=== PATIENT | male | born 1935 | race African-American/Black ===

== ENCOUNTER 2016-09-03 08:38 | Day surgery (SDC) | payer MEDICARE, OTHER ==
[~2016-09-03 08:38] MED LIST: KETOROLAC TROMETHAMINE 0.45% 4 DROP/0.4 ML DROPERETTE OS PRN
[2016-09-03] MEDS ORDERED: CHONDR SU A NA/HYALUR INTRAOC KIT (SURGICARE) ONE (08:47)
[2016-09-03] MEDS ORDERED: TOBRAMYCIN SULFATE/DEXAMETH OPH OINTMENT 3.5 GM ONE (08:47)
[2016-09-03] MEDS ORDERED: EPINEPHRINE INJ/PF 1 MG/1 ML AMPULE ONE (08:47)
[2016-09-03] MEDS ORDERED: LIDOCAINE 1% INJ-PF (10 MG/ML) 30 ML SDV ONE (08:47)
[2016-09-03] MEDS: TROPICAMIDE 1% OPH SOLN 3 ML OS PRN ×3 (09:09→09:36)
[2016-09-03] MEDS: CYCLOPENTOLATE 0.2%/PHENYLEPHRINE 1% OPH SOLN 2 ML OS PRN ×3 (09:09→09:36)
[2016-09-03] MEDS: BESIFLOXACIN HCL 0.6% OPH SUSP 5 ML BOTTLE OS PRN ×3 (09:10→10:05)
[2016-09-03] MEDS: TETRACAINE HCL 0.5% OPH SOLN 0.6 ML DROPERETTE OS PRN ×3 (09:11→09:45)
[2016-09-03] MEDS ORDERED: MIDAZOLAM 2 MG/2 ML INJ ONE (09:19)
[2016-09-03] MEDS ORDERED: FENTANYL CITRATE INJ/PF 100 MCG/2 ML AMPUL ONE (09:19)
== END 2016-09-03 10:54 | disposition home or self-care (01) ==
LOC: SC 08:38
PROVIDERS: ATTEND Ophthalmology
PROC: 08RK3JZ Replacement of Left Lens with Synthetic Substitute, Percutaneous Approach (ICD-10-PCS; principal; 2016-09-03 09:15)
DX: H25.12 Age-related nuclear cataract, left eye (principal); M19.90 Unspecified osteoarthritis, unspecified site; E11.9 Type 2 diabetes mellitus without complications; I10 Essential (primary) hypertension; E78.00 Pure hypercholesterolemia, unspecified; J44.9 Chronic obstructive pulmonary disease, unspecified; G47.30 Sleep apnea, unspecified; E66.9 Obesity, unspecified; Z96.642 Presence of left artificial hip joint; Z96.652 Presence of left artificial knee joint; Z79.84 Long term (current) use of oral hypoglycemic drugs; Z79.4 Long term (current) use of insulin; Z68.35 Body mass index [BMI] 35.0-35.9, adult; Z79.1 Long term (current) use of non-steroidal anti-inflammatories (NSAID)
CPT/HCPCS: 82962; 66984; V2630; J2250; J3490 ×3; A9270; J0171; J3010; 142

== ENCOUNTER 2016-11-29 16:45 | Emergency (ER) | payer MEDICARE, OTHER ==
[2016-11-29 16:54] VITALS: BP 103/63
--- NOTE | 2016-11-29 17:29 | ER Document Report ---
ED Extremity Problem, Upper - General Chief Complaint: Shoulder Pain Stated Complaint: LEFT SHOULDER PAIN Time Seen by Provider: 11/29/16 17:13 TRAVEL OUTSIDE OF THE [place] IN LAST 30 DAYS: No - HPI Patient complains to provider of: Pain, Left, Shoulder Onset: Other - 2 months, worse over this week Quality of pain: Achy Severity of pain: Moderate - positional Context: denies: Animal bite, Blow, Burn, Crushed, Fall, Human bite, Incised, Insect bite, Tick bite, Other Associated symptoms: denies: None, Back pain, Chest pain/discomfort, Chills, Dizziness, Fainted, Fever, Hurts to breathe, Jaw pain, Nausea, Neck pain, Numbness, Seizure, Short of breath, Sweating, Tingling, Vomiting, Other Exacerbated by: Movement Relieved by: Rest, Positioning Similar symptoms previously: Yes - h/o OA of this left shoulder Recently seen / treated by doctor: No - h/o DM - Related Data Allergies/Adverse Reactions: atenolol Allergy (Verified 11/29/16 16:51) Unknown reaction niacin [From Niaspan Extended-Release] Allergy (Verified 11/29/16 16:51) UNKNOW REACTION Past Medical History - Social History Smoking Status: Former Smoker Chew tobacco use (# tins/day): No Frequency of alcohol use: None Drug Abuse: None Family History: Reviewed & Not Pertinent - Past Medical History Cardiac Medical History: Reports: Hx Hypercholesterolemia, Hx Hypertension - MEDICATED Denies: Hx Heart Attack Pulmonary Medical History: Denies: Hx Asthma Neurological Medical History: Denies: Hx Cerebrovascular Accident, Hx Seizures Endocrine Medical History: Reports: Hx Diabetes Mellitus Type 2 Renal/ Medical History: Denies: Hx Peritoneal Dialysis Malignancy Medical History: Reports Hx Prostate Cancer - Getting radiation therapy in the burn at this time 06/16/2015 GI Medical History: Reports: Hx Gastroesophageal Reflux Disease. Denies: Hx Hepatitis, Hx Hiatal Hernia, Hx Ulcer Musculoskeltal Medical History: Reports Hx Arthritis, Reports Hx Musculoskeletal Deformity, Reports Hx Musculoskeletal Trauma Psychiatric Medical History: Reports: Hx Anxiety Traumatic Medical History: Reports: Hx Fractures Infectious Medical History: Denies: Hx Hepatitis Past Surgical History: Reports: Hx Orthopedic Surgery - left hip, left knee. Denies: Hx Open Heart Surgery, Hx Pacemaker - Immunizations Hx Diphtheria, Pertussis, Tetanus Vaccination: No Review of Systems - Review of Systems Constitutional: No symptoms reported Musculoskeletal: See HPI -: Yes All other systems reviewed and negative Physical Exam - Vital signs Vitals: Pulse Resp BP Pulse Ox 52 L 24 H 103/63 93 11/29/16 16:54 11/29/16 16:54 11/29/16 16:54 11/29/16 16:54 - General General appearance: Appears well, Alert In distress: None - Cardiovascular Pulses: Normal: Radial Normal capillary refill: Yes - Extremities General upper extremity: Normal inspection, Nontender, Normal color, Normal ROM , Normal strength, Normal temperature Shoulder: Normal, Nontender. No: Tender, Abrasion, Deformity, Dislocation, Ecchymosis, Instability, Laceration, Limited ROM, Other - Neurological Motor strength normal: LUE, RUE Additional motor exam normals: Equal paraeducator. No: Weakness Sensory: Normal - Skin Skin Temperature: Warm Skin Moisture: Dry Skin Color: Normal Skin Turgor: Elastic Course - Re-evaluation Re-evalutation: 11/29/16 1720 No evidence of a septic joint, gout flare, dislocation, or fracture on exam and imaging. Vitals wnl. At this time, I do not see an indication for labs or further imaging. Will discharge with conservative measures, return precautions, and follow-up recommendations. - Vital Signs Vital signs: Temp Pulse Resp BP Pulse Ox 52 L 24 H 103/63 93 11/29/16 16:54 11/29/16 16:54 11/29/16 16:54 11/29/16 16:54 - Diagnostic Test Radiology reviewed: Image reviewed, Reports reviewed Discharge - Discharge Clinical Impression: Osteoarthritis Qualifiers: Osteoarthritis location: shoulder Osteoarthritis type: primary Laterality: left Qualified Code(s): M19.012 - Primary osteoarthritis, left shoulder Condition: Good Disposition: HOME, SELF-CARE Instructions: Arthritis ([facility]) Additional Instructions: Please follow-up with your primary care provider this week for possible evaluation and need for pain management.
--- NOTE | 2016-11-29 18:37 | RADIOLOGY REPORT (SQ) ---
EXAM DESCRIPTION: SHOULDER LEFT 2 OR MORE VIEWS COMPLETED DATE/TIME: 11/29/2016 6:18 pm REASON FOR STUDY: pain COMPARISON: None. NUMBER OF VIEWS: Three views. TECHNIQUE: Internal rotation, external rotation, and Y view images acquired of the left shoulder. LIMITATIONS: None. FINDINGS: MINERALIZATION: Osteopenia. BONES: No acute fracture or dislocation. No worrisome bone lesions. JOINTS: No dislocation. Note is made of glenohumeral and acromioclavicular arthropathy. VISUALIZED LUNGS AND RIBS: No pneumothorax. No rib fracture. SOFT TISSUES: No radiopaque foreign body. OTHER: No other significant finding. IMPRESSION: NO RADIOGRAPHIC EVIDENCE OF ACUTE INJURY. TECHNICAL DOCUMENTATION: JOB ID: [id number] [employer]- All Rights Reserved
[2016-11-29] MEDS ORDERED: NAPROXEN 250 MG TABLET PO ONE (18:51)
== END 2016-11-29 19:00 | disposition home or self-care (01) ==
LOC: ER 16:45
DX: M19.012 Primary osteoarthritis, left shoulder (principal); E11.9 Type 2 diabetes mellitus without complications; I10 Essential (primary) hypertension; Z85.46 Personal history of malignant neoplasm of prostate; Z87.891 Personal history of nicotine dependence; Z88.8 Allergy status to other drugs, medicaments and biological substances
CPT/HCPCS: 99283; 73030; A9270

== ENCOUNTER 2017-01-28 12:12 | Emergency (ER) | payer MEDICARE, OTHER ==
--- NOTE | 2017-01-28 12:41 | ER Document Report ---
ED General - General Chief Complaint: Trouble Walking Stated Complaint: WEAKNESS Time Seen by Provider: 01/28/17 12:27 TRAVEL OUTSIDE OF THE [place] IN LAST 30 DAYS: No - HPI Onset: Just prior to arrival Onset/Duration: Gradual Quality of pain: Achy Associated symptoms: None Notes: 81 years old male with a history of right knee advanced arthritis to the point that he cannot bear weight, walks with the crutches, this morning when he was trying to sit down and lost his balance and fell down on his back and went backward and hit the head. Did not lose any consciousness. Currently has no headache no focal weakness numbness tingling sensation. He has a chronic history of right hand tremor, not diagnosed as parkinsonism. He is also have prostate cancer went through radiation treatment, going to have hormonal treatment soon. Denies any dysuria frequency or urgency. He has advanced diabetes with diabetic neuropathy. Denies any fever chills or other constitutional symptoms - Related Data Allergies/Adverse Reactions: atenolol Allergy (Verified 11/29/16 16:51) Unknown reaction niacin [From Niaspan Extended-Release] Allergy (Verified 11/29/16 16:51) UNKNOW REACTION Past Medical History - Social History Smoking Status: Never Smoker Cigarette use (# per day): No Chew tobacco use (# tins/day): No Frequency of alcohol use: None Drug Abuse: None Family History: Reviewed & Not Pertinent, CAD, COPD, CVA Patient has suicidal ideation: No Patient has homicidal ideation: No - Past Medical History Cardiac Medical History: Reports: Hx Congestive Heart Failure, Hx Coronary Artery Disease, Hx Hypercholesterolemia, Hx Hypertension - MEDICATED, Other - Advanced diabetes Denies: Hx Heart Attack Neurological Medical History: Reports: Other - Chronic tremors. Denies: Hx Cerebrovascular Accident, Hx Seizures Endocrine Medical History: Reports: Hx Diabetes Mellitus Type 2 Renal/ Medical History: Denies: Hx Peritoneal Dialysis Malignancy Medical History: Reports Hx Prostate Cancer - Getting radiation therapy in the burn at this time 06/16/2015 GI Medical History: Reports: Hx Gastroesophageal Reflux Disease. Denies: Hx Hepatitis, Hx Hiatal Hernia, Hx Ulcer Musculoskeltal Medical History: Reports Hx Arthritis, Reports Hx Musculoskeletal Deformity, Reports Hx Musculoskeletal Trauma Psychiatric Medical History: Reports: Hx Anxiety Traumatic Medical History: Reports: Hx Fractures Infectious Medical History: Denies: Hx Hepatitis Past Surgical History: Reports: Hx Orthopedic Surgery - left hip, left knee. Denies: Hx Open Heart Surgery, Hx Pacemaker - Immunizations Hx Diphtheria, Pertussis, Tetanus Vaccination: No Review of Systems - Review of Systems Constitutional: No symptoms reported EENT: No symptoms reported Cardiovascular: No symptoms reported Respiratory: No symptoms reported Gastrointestinal: No symptoms reported Genitourinary: No symptoms reported Hematologic/Lymphatic: No symptoms reported Neurological/Psychological: No symptoms reported Physical Exam - Vital signs Vitals: Temp Pulse Resp BP Pulse Ox 97.2 F 86 20 154/96 H 93 01/28/17 12:19 01/28/17 12:19 01/28/17 12:19 01/28/17 12:19 01/28/17 12:19 - Notes Notes: General exam: Alert oriented 3, appears well, not in any acute distress, body habitus--- morbidly obese, ---. HEENT: Normocephalic atraumatic pupils were equal reactive to light extraocular muscles were within normal range. Neck is supple no JVD no lymphadenopathy. Oral mucosa-not erythematous, no lesions noted no tonsillar enlargement. Chest no lesions, nontraumatic, nontender. No deformity Lungs: Bilaterally clear breath sounds no rales or wheezing, no adventitial sounds, no dullness on percussion. Cardiovascular system: Normal S1-S2 no murmurs, no gallop. Regular rhythm. No peripheral edema over the lower extremities. Gastrointestinal: Normal appearance, positive bowel sounds in all 4 quadrants, no Hepatosplenomegaly, no obvious masses, no obvious abdominal bruit. No horseshoe dullness. Inguinal region: No masses or obvious inguinal hernia noted Genitourinary: Rectal exam: Nervous system: Alert oriented 3, no cranial nerve weakness, no focal neurologicaldeficit noted. Sensation is intact over the lower extremities for pain and touch. Reflexes are 2+ over both patella. Right upper extremity shows trace pitting tremors Upper extremities: No trauma as noted, normal range of motion for both shoulders , elbows and wrist. Lower extremity: No traumas or deformities noted, normal range of motion for flexion extension abduction abduction of both hip joints, Normal flexion and extension of knee joint. Except right knee show severe osteoarthritic changes, flexion and extension was painful. Normal range of motion for plantarflexion dorsiflexion and eversion inversion for both ankles. Skin: No erythema, no edema, no obvious lesions noted Course - Re-evaluation Re-evalutation: 01/28/17 14:55 Patient was informed of the results, he is feeling comfortable ready to go home. - Vital Signs Vital signs: Temp Pulse Resp BP Pulse Ox 97.2 F 86 20 154/96 H 93 01/28/17 12:19 01/28/17 12:19 01/28/17 12:19 01/28/17 12:19 01/28/17 12:19 - Laboratory Result Diagrams: 01/28/17 13:22 01/28/17 13:22 Laboratory results interpreted by me: 01/28/17 13:22 Chloride 97 L Carbon Dioxide 33 H Glucose 140 H AST 16 L - Diagnostic Test Radiology results interpreted by me: 01/28/17 14:54 Diagnostic report text EXAM DESCRIPTION: CT HEAD WITHOUT COMPLETED DATE/TIME: 01/28/2017 1:12 pm REASON FOR STUDY: Nonambulatory COMPARISON: None. TECHNIQUE: Axial images acquired through the brain without intravenous contrast. Images reviewed with bone, brain and subdural windows. Images stored on PACS. All CT scanners at this facility use dose modulation, iterative reconstruction, and/or weight based dosing when appropriate to reduce radiation dose to as low as reasonably achievable (ALARA). [facility]: Dose Right [facility]: CareDose [facility]: Dose Right [facility]: Teradose 4D [facility]: [employer] RADIATION DOSE: mGy. LIMITATIONS: Study is limited somewhat due to motion artifact FINDINGS: VENTRICLES: Prominent. CEREBRUM: No masses. No hemorrhage. No midline shift. Areas of low density in the white matter most likely due to chronic micro-vascular ischemic change. No evidence for acute infarction. CEREBELLUM: No masses. No hemorrhage. No alteration of density. No evidence for acute infarction. EXTRAAXIAL SPACES: Age-related involutional change. No fluid collections. No masses. ORBITS AND GLOBE: No intra- or extraconal masses. Normal contour of globe without masses. CALVARIUM: No fracture. PARANASAL SINUSES: No fluid or mucosal thickening. SOFT TISSUES: No mass or hematoma. OTHER: No other significant finding. IMPRESSION: CHRONIC CHANGES OF ATROPHY AND MICROVASCULAR ISCHEMIA. NO ACUTE PROCESS. EVIDENCE OF ACUTE STROKE: NO. TECHNICAL DOCUMENTATION: JOB ID: [id number] Quality ID # [id number]: Final reports with documentation of one or more dose reduction techniques (e.g., Automated exposure control, adjustment of the mA and/or kV according to patient size, use of iterative reconstruction technique) 2010 [employer]- All Rights Reserved Dictated by: SITA MANCUSO MD [id number] Discharge - Discharge Clinical Impression: Fall (on) (from) other stairs and steps, initial encounter Osteoarthritis of right knee Qualifiers: Osteoarthritis type: primary Qualified Code(s): M17.11 - Unilateral primary osteoarthritis, right knee Condition: Fair Disposition: HOME, SELF-CARE Instructions: Arthritis ([facility])
[2017-01-28 12:48] VITALS: BP 154/96
--- NOTE | 2017-01-28 13:29 | RADIOLOGY REPORT (SQ) ---
EXAM DESCRIPTION: CT HEAD WITHOUT COMPLETED DATE/TIME: 01/28/2017 1:12 pm REASON FOR STUDY: Nonambulatory COMPARISON: None. TECHNIQUE: Axial images acquired through the brain without intravenous contrast. Images reviewed wi th bone, brain and subdural windows. Images stored on PACS. All CT scanners at this facility use dose modulation, iterative reconstruction, and/or weight based d osing when appropriate to reduce radiation dose to as low as reasonably achievable (ALARA). [facility]: Dose Right [facility]: CareDose [facility]: Dose Right [facility]: Teradose 4D [facility]: [employer] RADIATION DOSE: mGy. LIMITATIONS: Study is limited somewhat due to motion artifact FINDINGS: VENTRICLES: Prominent. CEREBRUM: No masses. No hemorrhage. No midline shift. Areas of low density in the white matter mos t likely due to chronic micro-vascular ischemic change. No evidence for acute infarction. CEREBELLUM: No masses. No hemorrhage. No alteration of density. No evidence for acute infarction. EXTRAAXIAL SPACES: Age-related involutional change. No fluid collections. No masses. ORBITS AND GLOBE: No intra- or extraconal masses. Normal contour of globe without masses. CALVARIUM: No fracture. PARANASAL SINUSES: No fluid or mucosal thickening. SOFT TISSUES: No mass or hematoma. OTHER: No other significant finding. IMPRESSION: CHRONIC CHANGES OF ATROPHY AND MICROVASCULAR ISCHEMIA. NO ACUTE PROCESS. EVIDENCE OF ACUTE STROKE: NO. TECHNICAL DOCUMENTATION: JOB ID: [id number] Quality ID # [id number]: Final reports with documentation of one or more dose reduction techniques (e.g., Au tomated exposure control, adjustment of the mA and/or kV according to patient size, use of iterative reconstruction technique) 2010 [employer]- All Rights Reserved
[2017-01-28 13:47] LABS: ABSOLUTE BASOPHILS # (AUTO) 0.1 10^3/uL (0.0-0.2); ABSOLUTE EOSINOPHILS # (AUTO) 0.2 10^3/uL (0.0-0.6); ABSOLUTE LYMPHOCYTES (AUTO) 1.5 10^3/uL (0.5-4.7); ABSOLUTE MONOCYTES (AUTO) 0.5 10^3/uL (0.1-1.4); ABSOLUTE NEUT (AUTO) 4.7 10^3/uL (1.7-8.2); BASOPHILS % (AUTO) 1.2 % (0-2); EOSINOPHILS % (AUTO) 2.9 % (0-6); HEMATOCRIT 45.7 % (37.9-51.0); HEMOGLOBIN 15.4 g/dL (13.5-17.0); HGB HCT DIFFERENCE 0.5; LYMPHOCYTES % (AUTO) 21.3 % (13-45); MEAN CORPUSCULAR HEMOGLOBIN 28.3 pg (27.0-33.4); MEAN CORPUSCULAR HGB CONC 33.7 g/dL (32.0-36.0); MEAN CORPUSCULAR VOLUME 84 fl (80-97); MONOCYTES % (AUTO) 6.6 % (3-13); RED BLOOD COUNT 5.45 10^6/uL (4.35-5.55); RED CELL DISTRIBUTION WIDTH 13.5 % (11.5-14.0); WHITE BLOOD COUNT 6.9 10^3/uL (4.0-10.5)
[2017-01-28 13:53] LABS: ALANINE AMINOTRANSFERASE 30 U/L (21-72); ALBUMIN 3.8 g/dL (3.5-5.0); ALKALINE PHOSPHATASE 88 U/L (38-126); ANION GAP 10 (5-19); ASPARTATE AMINO TRANSFERASE 16 U/L (17-59); BILIRUBIN,DIRECT 0.3 mg/dL (0.0-0.4); BILIRUBIN,TOTAL 0.8 mg/dL (0.2-1.3); BLOOD UREA NITROGEN 12 mg/dL (7-20); CALCIUM 9.5 mg/dL (8.4-10.2); CARBON DIOXIDE 33 mmol/L (22-30); CHLORIDE 97 mmol/L (98-107); CREATININE RESULT 0.81 mg/dL (0.52-1.25); GLUCOSE 140 mg/dL (75-110); SODIUM 139.8 mmol/L (137-145); TOTAL PROTEIN 6.6 g/dL (6.3-8.2)
== END 2017-01-28 17:23 | disposition home or self-care (01) ==
LOC: ER 12:12
DX: M17.11 Unilateral primary osteoarthritis, right knee (principal); R26.2 Difficulty in walking, not elsewhere classified; R53.1 Weakness; W10.9XXA Fall (on) (from) unspecified stairs and steps, initial encounter
CPT/HCPCS: 36415; 70450; 80053; 85025; 99285

== ENCOUNTER 2017-04-08 16:09 | Emergency (ER) | payer MEDICARE, OTHER ==
[2017-04-08 19:33] LABS: ABSOLUTE BASOPHILS # (AUTO) 0.1 10^3/uL (0.0-0.2); ABSOLUTE EOSINOPHILS # (AUTO) 0.2 10^3/uL (0.0-0.6); ABSOLUTE LYMPHOCYTES (AUTO) 1.4 10^3/uL (0.5-4.7); ABSOLUTE MONOCYTES (AUTO) 0.6 10^3/uL (0.1-1.4); ABSOLUTE NEUT (AUTO) 6.1 10^3/uL (1.7-8.2); BASOPHILS % (AUTO) 1.2 % (0-2); EOSINOPHILS % (AUTO) 2.3 % (0-6); HEMATOCRIT 47.6 % (37.9-51.0); HEMOGLOBIN 15.8 g/dL (13.5-17.0); LYMPHOCYTES % (AUTO) 16.6 % (13-45); MEAN CORPUSCULAR HEMOGLOBIN 28.2 pg (27.0-33.4); MEAN CORPUSCULAR HGB CONC 33.2 g/dL (32.0-36.0); MEAN CORPUSCULAR VOLUME 85 fl (80-97); MONOCYTES % (AUTO) 6.8 % (3-13); PLATELET COUNT 256 10^3/uL (150-450); RED BLOOD COUNT 5.61 10^6/uL (4.35-5.55); RED CELL DISTRIBUTION WIDTH 13.9 % (11.5-14.0); SEGMENTED NEUTROPHILS % (AUTO) 73.1 % (42-78); TOTAL CELLS COUNTED % (AUTO) 100 %; WHITE BLOOD COUNT 8.3 10^3/uL (4.0-10.5)
--- NOTE | 2017-04-08 19:37 | RADIOLOGY REPORT (SQ) ---
EXAM DESCRIPTION: CHEST SINGLE VIEW COMPLETED DATE/TIME: 04/08/2017 7:30 pm REASON FOR STUDY: hypoxia COMPARISON: None. EXAM PARAMETERS: NUMBER OF VIEWS: One view. TECHNIQUE: Single frontal radiographic view of the chest acquired. RADIATION DOSE: NA LIMITATIONS: None. FINDINGS: LUNGS AND PLEURA: No consolidation, masses or pneumothorax. No pleural effusion. MEDIASTINUM AND HILAR STRUCTURES: Age-appropriate. HEART AND VASCULAR STRUCTURES: Mild cardiac enlargement. BONES: No acute findings. HARDWARE: None in the chest. OTHER: No other significant finding. IMPRESSION: NO ACUTE RADIOGRAPHIC FINDING IN THE CHEST. TECHNICAL DOCUMENTATION: JOB ID: [id number] [place]-72 2010 [employer]- All Rights Reserved
[2017-04-08 19:52] LABS: ANION GAP 7 (5-19); BLOOD UREA NITROGEN 11 mg/dL (7-20); CALCIUM 10.1 mg/dL (8.4-10.2); CARBON DIOXIDE 36 mmol/L (22-30); CHLORIDE 98 mmol/L (98-107); GLUCOSE 136 mg/dL (75-110); POTASSIUM 4.1 mmol/L (3.6-5.0); SODIUM 141.3 mmol/L (137-145)
--- NOTE | 2017-04-08 20:06 | ER Document Report ---
ED General - General Chief Complaint: High Blood Pressure Stated Complaint: BLOOD PRESSURE PROBLEM Time Seen by Provider: 04/08/17 18:34 Notes: Patient is a 81 year old male who presents with concerns of hypertension. Patient states that he does not have any symptoms or concerns. He reports that he was being transported from his doctor's office back home via [employer] transport company. They noted that his blood pressure was elevated and encouraged him to come to the emergency department as opposed to going directly home. The patient notes that his blood pressure is not normally elevated, that he has been more stressed out lately due to a recent move within his home as well as multiple doctors appointments. He takes lisinopril 10 mg daily and has not had any recent medication and just. He denies any chest pain, shortness of breath, headache, neck pain, focal weakness, numbness or confusion. He believes that situational stressors have increased his blood pressure and does believe that his blood pressure medicine is working well. His at the bedside corroborates this report and states "everybody just freaks out about his blood pressure all the time and I do not know why". TRAVEL OUTSIDE OF THE [place] IN LAST 30 DAYS: No - Related Data Allergies/Adverse Reactions: atenolol Allergy (Verified 11/29/16 16:51) Unknown reaction niacin [From Niaspan Extended-Release] Allergy (Verified 11/29/16 16:51) UNKNOW REACTION Past Medical History - General Information source: Patient, Relative - Social History Smoking Status: Former Smoker Frequency of alcohol use: None Drug Abuse: None Family History: Reviewed & Not Pertinent, CAD, COPD, CVA Patient has suicidal ideation: No Patient has homicidal ideation: No - Past Medical History Cardiac Medical History: Reports: Hx Congestive Heart Failure, Hx Coronary Artery Disease, Hx Hypercholesterolemia, Hx Hypertension - MEDICATED Denies: Hx Heart Attack Neurological Medical History: Denies: Hx Cerebrovascular Accident, Hx Seizures Endocrine Medical History: Reports: Hx Diabetes Mellitus Type 2 Renal/ Medical History: Denies: Hx Peritoneal Dialysis Malignancy Medical History: Reports Hx Prostate Cancer - Getting radiation therapy in the burn at this time 06/16/2015 GI Medical History: Reports: Hx Gastroesophageal Reflux Disease. Denies: Hx Hepatitis, Hx Hiatal Hernia, Hx Ulcer Musculoskeltal Medical History: Reports Hx Arthritis, Reports Hx Musculoskeletal Deformity, Reports Hx Musculoskeletal Trauma Psychiatric Medical History: Reports: Hx Anxiety Traumatic Medical History: Reports: Hx Fractures Infectious Medical History: Denies: Hx Hepatitis Past Surgical History: Reports: Hx Orthopedic Surgery - left hip, left knee. Denies: Hx Open Heart Surgery, Hx Pacemaker - Immunizations Hx Diphtheria, Pertussis, Tetanus Vaccination: No Review of Systems - Review of Systems Notes: Constitutional: Negative for fever. HENT: Negative for sore throat. Eyes: Negative for visual changes. Cardiovascular: Negative for chest pain. Respiratory: Negative for shortness of breath. Gastrointestinal: Negative for abdominal pain, vomiting or diarrhea. Genitourinary: Negative for dysuria. Musculoskeletal: Negative for back pain. Skin: Negative for rash. Neurological: Negative for headaches, weakness or numbness. 10 point ROS negative except as marked above and in HPI. Physical Exam - Vital signs Vitals: Temp Resp Pulse Ox 97.7 F 10 L 99 04/08/17 16:45 04/08/17 16:45 04/08/17 16:45 Interpretation: Normal Notes: PHYSICAL EXAMINATION: GENERAL: Well-appearing, well-nourished and in no acute distress. HEAD: Atraumatic, normocephalic. EYES: Pupils equal round and reactive to light, extraocular movements intact, sclera anicteric, conjunctiva are normal. ENT: nares patent, oropharynx clear without exudates. Moist mucous membranes. NECK: Normal range of motion, supple without lymphadenopathy LUNGS: Breath sounds clear to auscultation bilaterally and equal. No wheezes rales or rhonchi. HEART: Regular rate and rhythm without murmurs ABDOMEN: Soft, nontender, normoactive bowel sounds. No guarding, no rebound. No masses appreciated. EXTREMITIES: Normal range of motion, no pitting or edema. No cyanosis. NEUROLOGICAL: No focal neurological deficits. Moves all extremities spontaneously and on command. PSYCH: Normal mood, normal affect. SKIN: Warm, Dry, normal turgor, no rashes or lesions noted. Course - Re-evaluation Re-evalutation: 04/08/17 20:05 Presentation of asymptomatic hypertension. Patient denies any symptoms concerning for SAH, dissection, CO, or encephalopaty. Alert, oriented, and denies any symptoms at time of assessment. Normal neuro exam. Labs and chest x- ray as well as EKG were ordered prior to my assessment this patient. These are noted to be unremarkable. Patient denies any complaints whatsoever that his blood pressure was high and that the medical transport bring him home from a doctor's appointments that he should come to the hospital due to how high his blood pressure was. notes that they check his blood pressure daily and that it is not typically elevated at home. Will therefore not make any medication adjustments at this time as this appears to be a single data point in an otherwise long-standing history of normal blood pressure in the setting of just 10 mg of lisinopril daily. At this time will discharge with return precautions and follow-up recommendations. Verbal discharge instructions given a the bedside and opportunity for questions given. Medication warnings reviewed. Patient is in agreement with this plan and has verbalized understanding of return precautions and the need for primary care follow-up in the next 24-72 hours. - Vital Signs Vital signs: Temp Pulse Resp BP Pulse Ox 98.1 F 100 20 132/72 H 97 04/08/17 23:30 04/08/17 23:30 04/08/17 23:30 04/08/17 23:30 04/08/17 23:30 - Laboratory Result Diagrams: 04/08/17 19:15 04/08/17 19:15 Laboratory results interpreted by me: 04/08/17 04/08/17 19:15 19:15 RBC 5.61 H Carbon Dioxide 36 H Glucose 136 H - Diagnostic Test Radiology reviewed: Image reviewed, Reports reviewed Radiology results interpreted by me: 04/08/17 20:02 Chest x-ray: No acute infiltrate or pneumothorax - EKG Interpretation by Me Additional EKG results interpreted by me: 04/08/17 20:03 Atrial fibrillation. Rate 91. No ST elevations or depressions. QTC is 468. Discharge - Discharge Clinical Impression: Essential hypertension Condition: Good Disposition: HOME, SELF-CARE Additional Instructions: You were seen today for blood pressure that was high. This is a long-term risk factor for multiple medical problems including heart attack and stroke. However, the blood pressure in of itself will not cause you to have an acute stroke or heart attack over the course of just several days or weeks. You need to have a gradual reduction of your blood pressure back to normal levels over the next several months in conjunction with your primary care physician. Return if you develop headache, weakness, numbness, chest pain, pass out, or have any other symptoms that are concerning to you. Referrals: PAUL WHITT MD [Primary Care Provider] - Follow up as needed
[2017-04-09 00:34] VITALS: BP 132/72
--- NOTE | 2017-04-09 08:54 | EKG REPORT ---
SEVERITY:- ABNORMAL ECG - SINUS RHYTHM LAD, CONSIDER LAFB OR INFERIOR INFARCT BORDERLINE T WAVE ABNORMALITIES ATRIAL PREMATURE COMPLEX : Confirmed by: Cheri Alanis 09-Apr-2017 08:53:52
== END 2017-04-08 23:30 | disposition home or self-care (01) ==
LOC: ER 16:09
DX: I10 Essential (primary) hypertension (principal); I50.9 Heart failure, unspecified; I25.10 Atherosclerotic heart disease of native coronary artery without angina pectoris; E78.00 Pure hypercholesterolemia, unspecified; E11.9 Type 2 diabetes mellitus without complications
CPT/HCPCS: 36415; 71045; 80048; 84484; 85025; 93005; 93010; 99284

== ENCOUNTER → 2017-05-18 | Outpatient (CLI) | payer MEDICARE, OTHER, BC ==
[2017-05-18 18:14] LABS: ALANINE AMINOTRANSFERASE 37 U/L (21-72); ALBUMIN 3.9 g/dL (3.5-5.0); ALKALINE PHOSPHATASE 87 U/L (38-126); ANION GAP 5 (5-19); ASPARTATE AMINO TRANSFERASE 22 U/L (17-59); BILIRUBIN,DIRECT 0.4 mg/dL (0.0-0.4); BILIRUBIN,TOTAL 0.5 mg/dL (0.2-1.3); BLOOD UREA NITROGEN 15 mg/dL (7-20); CALCIUM 9.9 mg/dL (8.4-10.2); CARBON DIOXIDE 37 mmol/L (22-30); CHLORIDE 94 mmol/L (98-107); GLUCOSE 253 mg/dL (75-110); POTASSIUM 4.1 mmol/L (3.6-5.0); SODIUM 135.5 mmol/L (137-145); TOTAL PROTEIN 6.7 g/dL (6.3-8.2)
== END ==
LOC: OD 16:19
PROVIDERS: ATTEND Family Medicine
DX: E11.9 Type 2 diabetes mellitus without complications (principal); M62.81 Muscle weakness (generalized)
CPT/HCPCS: 36415; 80053; 83036; 84443

== ENCOUNTER 2018-01-31 23:16 | Emergency (ER) | payer MEDICARE, OTHER ==
--- NOTE | 2018-01-31 23:24 | ER Document Report ---
ED General - General Stated Complaint: ALTERED MENTAL STATUS Time Seen by Provider: 01/31/18 23:20 Cannot obtain history due to: Dementia, Altered mental status Notes: Patient is an 82-year-old male who presents by EMS due to increasing agitation and confusion at home. The patient himself is profoundly confused, does not know what happened tonight or why he is here in the emergency department. He is unable to provide any additional history. The was interviewed separately. She reports that the patient has demonstrated increasingly aggressive and violent behaviors over the last several weeks. She reports that he has been confused, frequently has hallucinations, and has progressively worsening dementia based on primary care doctor's diagnoses. She states that she has been able to manage the patient's behavior for the last 14 months but it is now getting to a point where she no longer feels safe at home and is worried that he will physically harm her. TRAVEL OUTSIDE OF THE [place] IN LAST 30 DAYS: No - Related Data Allergies/Adverse Reactions: atenolol Allergy (Verified 11/29/16 16:51) Unknown reaction niacin [From Niaspan Extended-Release] Allergy (Verified 11/29/16 16:51) UNKNOW REACTION Past Medical History - General Information source: Relative Cannot obtain history due to: Dementia, Altered mental status - Social History Smoking Status: Never Smoker Frequency of alcohol use: None Drug Abuse: None Lives with: Spouse/Significant other Family History: Reviewed & Not Pertinent, CAD, COPD, CVA - Past Medical History Cardiac Medical History: Reports: Hx Congestive Heart Failure, Hx Coronary Artery Disease, Hx Hypercholesterolemia, Hx Hypertension - MEDICATED Denies: Hx Heart Attack Neurological Medical History: Denies: Hx Cerebrovascular Accident, Hx Seizures Endocrine Medical History: Reports: Hx Diabetes Mellitus Type 2 Renal/ Medical History: Denies: Hx Peritoneal Dialysis Malignancy Medical History: Reports Hx Prostate Cancer - Getting radiation therapy in the burn at this time 06/16/2015 GI Medical History: Reports: Hx Gastroesophageal Reflux Disease. Denies: Hx Hepatitis, Hx Hiatal Hernia, Hx Ulcer Musculoskeletal Medical History: Reports Hx Arthritis, Reports Hx Musculoskeletal Deformity, Reports Hx Musculoskeletal Trauma Psychiatric Medical History: Reports: Hx Anxiety Traumatic Medical History: Reports: Hx Fractures Infectious Medical History: Denies: Hx Hepatitis Past Surgical History: Reports: Hx Orthopedic Surgery - left hip, left knee. Denies: Hx Open Heart Surgery, Hx Pacemaker - Immunizations Hx Diphtheria, Pertussis, Tetanus Vaccination: No Review of Systems - Review of Systems Notes: Constitutional: Negative for fever. HENT: Negative for sore throat. Eyes: Negative for visual changes. Cardiovascular: Negative for chest pain. Respiratory: Negative for shortness of breath. Gastrointestinal: Negative for abdominal pain, vomiting or diarrhea. Genitourinary: Negative for dysuria. Musculoskeletal: Negative for back pain. Skin: Negative for rash. Neurological: Negative for headaches, weakness or numbness. 10 point ROS negative except as marked above and in HPI. Physical Exam - Vital signs Vitals: Temp Pulse Resp BP Pulse Ox 97.4 F 47 L 20 161/74 H 95 01/31/18 23:25 01/31/18 23:25 01/31/18 23:25 01/31/18 23:25 01/31/18 23:25 Interpretation: Bradycardic Notes: PHYSICAL EXAMINATION: GENERAL: Pleasant on initial contact, somewhat loquacious, in no distress HEAD: Atraumatic, normocephalic. EYES: Pupils equal round and reactive to light, extraocular movements intact, sclera anicteric, conjunctiva are normal. ENT: nares patent, oropharynx clear without exudates. Moderately dry mucous membranes. NECK: Normal range of motion, supple without lymphadenopathy LUNGS: Breath sounds clear to auscultation bilaterally and equal. No wheezes rales or rhonchi. HEART: Regular rate and rhythm without murmurs ABDOMEN: Soft, nontender, normoactive bowel sounds. No guarding, no rebound. No masses appreciated. EXTREMITIES: Normal range of motion, no pitting or edema. No cyanosis. NEUROLOGICAL: No focal neurological deficits. Moves all extremities spontaneously and on command. PSYCH: Oriented only to person SKIN: Warm, Dry, normal turgor, no rashes or lesions noted. Course - Re-evaluation Re-evalutation: 02/01/18 00:35 Patient presents with increasing agitation and violent behaviors towards his significant other at home where the patient has advanced dementia, is actively hallucinating during my assessment which the does report his baseline. Apparently tonight the patient became acutely agitated, began swinging at the patient with a metal jose trying to attack the family cats. The reports that she has been managing the patient at home for the past 14 months but that his behaviors have become increasingly [id number] due to his progressively worsening dementia and she no longer feels safe caring for him at home. She notes that there is nothing acutely different about his behaviors tonight beyond that the violent aspects have escalated. Will obtain standard screening labs, plan for social hold and assistance with placement in the morning. - Vital Signs Vital signs: Temp Pulse Resp BP Pulse Ox 97.4 F 47 L 20 161/74 H 95 01/31/18 23:25 01/31/18 23:25 01/31/18 23:25 01/31/18 23:25 01/31/18 23:25 - Laboratory Result Diagrams: 02/01/18 00:58 02/01/18 00:58 Laboratory results interpreted by me: 02/01/18 02/01/18 00:58 00:58 RBC 5.69 H Seg Neutrophils % 78.8 H Chloride 95 L Carbon Dioxide 36 H Glucose 245 H ALT 17 L Salicylates < 1.0 L Acetaminophen < 10 L - EKG Interpretation by Me Additional EKG results interpreted by me: 02/01/18 02:08 Atrial fibrillation, rate 112. No ST elevations or depressions. Intermittent PVCs. QTC 419. Discharge - Discharge Clinical Impression: Hallucinations, Agitation, Violent behavior Dementia Qualifiers: Dementia type: Alzheimer's disease Alzheimer's disease onset: unspecified onset Dementia behavioral disturbance: with behavioral disturbance Qualified Code(s): G30.9 - Alzheimer's disease, unspecified Condition: Fair Referrals: KATJA HIRSCH MD [Primary Care Provider] - Follow up as needed
[2018-02-01 01:09] LABS: ABSOLUTE BASOPHILS # (AUTO) 0.1 10^3/uL (0.0-0.2); ABSOLUTE EOSINOPHILS # (AUTO) 0.1 10^3/uL (0.0-0.6); ABSOLUTE LYMPHOCYTES (AUTO) 1.1 10^3/uL (0.5-4.7); ABSOLUTE MONOCYTES (AUTO) 0.5 10^3/uL (0.1-1.4); ABSOLUTE NEUT (AUTO) 6.8 10^3/uL (1.7-8.2); BASOPHILS % (AUTO) 0.8 % (0-2); EOSINOPHILS % (AUTO) 1.3 % (0-6); HEMATOCRIT 48.1 % (37.9-51.0); HEMOGLOBIN 16.1 g/dL (13.5-17.0); LYMPHOCYTES % (AUTO) 13.2 % (13-45); MEAN CORPUSCULAR HEMOGLOBIN 28.3 pg (27.0-33.4); MEAN CORPUSCULAR HGB CONC 33.5 g/dL (32.0-36.0); MEAN CORPUSCULAR VOLUME 85 fl (80-97); MONOCYTES % (AUTO) 5.9 % (3-13); PLATELET COUNT 182 10^3/uL (150-450); RED BLOOD COUNT 5.69 10^6/uL (4.35-5.55); SEGMENTED NEUTROPHILS % (AUTO) 78.8 % (42-78); TOTAL CELLS COUNTED % (AUTO) 100 %; WHITE BLOOD COUNT 8.6 10^3/uL (4.0-10.5)
[2018-02-01 01:23] LABS: ALANINE AMINOTRANSFERASE 17 U/L (21-72); ALBUMIN 3.9 g/dL (3.5-5.0); ALKALINE PHOSPHATASE 86 U/L (38-126); ANION GAP 12 (5-19); ASPARTATE AMINO TRANSFERASE 20 U/L (17-59); BILIRUBIN,DIRECT 0.4 mg/dL (0.0-0.4); BILIRUBIN,TOTAL 0.7 mg/dL (0.2-1.3); BLOOD UREA NITROGEN 18 mg/dL (7-20); CALCIUM 9.9 mg/dL (8.4-10.2); CARBON DIOXIDE 36 mmol/L (22-30); CHLORIDE 95 mmol/L (98-107); GLUCOSE 245 mg/dL (75-110); POTASSIUM 4.3 mmol/L (3.6-5.0); TOTAL PROTEIN 7.2 g/dL (6.3-8.2)
[2018-02-01 01:24] LABS: ACETAMINOPHEN < 10 ug/mL (10-30); ALCOHOL < 10 mg/dL (NONE DETECTED); SALICYLATE < 1.0 mg/dL (2.0-20.0)
--- NOTE | 2018-02-01 06:56 | EKG REPORT ---
SEVERITY:- ABNORMAL ECG - ATRIAL FIBRILLATION, CAN NOT SINUS WITH FREQUENT APCS AND MAT VENTRICULAR PREMATURE COMPLEXES LEFT ANTERIOR FASCICULAR BLOCK BORDERLINE T ABNORMALITIES, LATERAL LEADS : Confirmed by: Cheri Alanis 01-Feb-2018 06:55:38
[2018-02-01] MEDS ORDERED: RISPERIDONE 0.25 MG TABLET PO PRN (10:45)
--- NOTE | 2018-02-01 12:00 | PSYCHOLOGICAL NOTE ---
Psych Note - Psych Note Date seen by psych provider: 02/01/18 Time seen by psych provider: 07:15 - Chart review at 0717. Evaluation from 0749- 0803. Psych Note: Reason for Consult: Dementia, increased confusion/disorientation, increased agitation/violent behavior, hallucinations Contact Permissions: at bedside upon arrival and after evaluation today Patient is an 82 year old male who presented to the ED late last night via EMS for increased confusion, agitation, being disoriented and increased aggression/ violent behavior per over the last several weeks. He perseverated on "his buying a towel that had holes/slits for pinning things where she put a bunch of copperhead snakes." He had an elaborate story that involved his "older girl cat resting where the towel was and trying to get the snakes." he talked about being in "[place], coming to the hospital where a bar used to be, then seeing a bunch of people dressed like they work in a kitchen." He commented " was the one girl your sister" to this clinician. He stated his one was out to get him but the one who would be giving him a ride is okay. Patient was alert and oriented to self and knew he was in a hospital. He seemed to be mixing up older memories with the here and now. Chart review revealed patient's medical history was positive for CHF, CAD, hypercholesterolemia, HTN, Diabetes Mellitus II, Prostate Cancer, GERD, Arthritis, Anxiety and orthopedic surgeries (left hip and left knee). informed medical staff last night patient has had increased confusion, agitation , aggression, violent behavior, and frequent hallucinations in the home the last several weeks. She said his PCM diagnosed him with dementia which has seemed to be progressively worsening. She informed medical staff she had been managing patient in the home the last 14 months but now has concern for safety and physical harm. 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 Dank MD., includes: Add Depakote 250MG twice a day for mood stabilization Add Buspar 10MG twice a day for anxiety/depression/sleep Add Risperdal 0.25MG twice a day as needed for behavioral issues Impression/Plan: Patient has been cleared from acute psychiatric services. Medication recommendations provided to address dementia behaviors/symptoms of increased aggression, agitation and confusion. Requested ED SW consult be ordered for [facility] given had informed medical staff last night she's been managing him at home the past 14 months but can no longer do so and attending nurse did so. Consulted with Dr. Dewey regarding the management and care of patient. ED Physician in agreement with recommendations.
[2018-02-01] MEDS: DIVALPROEX SODIUM 250 MG TABLET.DR PO SCH ×2 (12:08→18:38)
[2018-02-01] MEDS: BUSPIRONE HCL 10 MG TABLET PO SCH ×2 (12:08→18:38)
--- NOTE | 2018-02-01 13:42 | ER Document Report ---
Doctor's Note Notes: 02/01/18 13:32 82-year-old male patient brought in the emergency room last night for worsening dementia and psychotic behavior. Reviewing his records suggest that he is not on any psychiatric medications. There are some outpatient studies ordered earlier this year by a doctor Harvey Turcios in [place], [place] which is just outside of [place]. Reviewing the patient's medications, the only thing that shows up by outside pharmacies is insulin injection. I cannot tell if the patient had ever been on any psychiatric medications. The patient does remain demented, delusional, and somewhat psychotic. He gets very excited and angry easily. He describes elaborate schemes run by 1 of his 's 2 drill holes in the window frames and run tubing that then goes through holes drilled in the wall of his house to provide access for copperhead snakes to enter. Last night, we are told that he called 911 to complain that 1 of his 's went to [facility] and bought a towel with the pockets like doctors used to put the pins in and filled it with copperhead snakes and threw it on him. He also thinks that he is in a grocery store at this time. He will be started on Depakote 250 mg twice daily, BuSpar 10 mg twice daily, and Risperdal 0.25 mg twice daily as needed behavioral problems. He will be observed and reevaluated tomorrow to see if the medications bring his psychiatric disturbances under control adequately enough for him to safely return to his home.
[2018-02-01 15:57] LABS: AMORPHOUS SEDIMENT,URINE TRACE /HPF; APPEARANCE,URINE CLOUDY; BILIRUBIN,URINE NEGATIVE (NEGATIVE); COLOR,URINE YELLOW; GLUCOSE, URINE NEGATIVE (NEGATIVE); KETONES,URINE NEGATIVE (NEGATIVE); LEUKOCYTE ESTERASE,URINE NEGATIVE (NEGATIVE); NITRITE,URINE NEGATIVE (NEGATIVE); PROTEIN,URINE 30 mg/dL (NEGATIVE); URINE SPECIFIC GRAVITY 1.019
[2018-02-01 16:17] LABS: URINE AMPHETAMINES SCREEN NEGATIVE; URINE BARBITURATES SCREEN NEGATIVE; URINE BENZODIAZEPINES SCREEN NEGATIVE; URINE COCAINE SCREEN NEGATIVE; URINE MARIJUANA (THC) SCREEN NEGATIVE; URINE METHADONE SCREEN NEGATIVE; URINE PHENCYCLIDINE SCREEN NEGATIVE
[2018-02-02] MEDS ORDERED: TUBERCULIN,PURIF.PROT.DERIV. 5 TU/0.1 ML TEST 1 ML VIAL ID ONE ×2 (08:00→09:00)
[2018-02-02] MEDS ORDERED: AMLODIPINE BESYLATE 5 MG TABLET PO ONE (08:06)
[2018-02-02] MEDS: DIVALPROEX SODIUM 250 MG TABLET.DR PO SCH ×2 (09:46→17:27)
[2018-02-02] MEDS: BUSPIRONE HCL 10 MG TABLET PO SCH ×2 (09:47→17:27)
[2018-02-02] MEDS ORDERED: ENOXAPARIN SODIUM INJ 40 MG/0.4 ML DISP.SYRIN SUBCUT SCH (10:00)
--- NOTE | 2018-02-02 12:11 | ER Document Report ---
Doctor's Note Notes: 02/02/18 12:03 The patient's spouse is here now and we have some records from a visit to [facility] on 05/18/2017. The also reports that he has seen physicians at [facility] office. He has not been seen by anyone in several months and has not been on any of his medication in several months. We discussed at length the need for regular primary care visits. We will try the BuSpar and Depakote to see if that improves his dementia and behavior enough to make it reasonable for him to continue to live at home. We will start him on metformin for his diabetes and amlodipine for his blood pressure. He will need to follow-up with a primary care provider for long-term management and to help with facility placement if remaining at home is not an option.
[2018-02-02 17:53] VITALS: BP 160/83
== END 2018-02-02 17:57 | disposition home or self-care (01) ==
LOC: ER 23:16
DX: R44.3 Hallucinations, unspecified (principal); R45.1 Restlessness and agitation; R45.6 Violent behavior; G30.9 Alzheimer's disease, unspecified
CPT/HCPCS: 93005; 36415; 82962; 80307 ×4; 85025; 80053; 81001; 93010; A9270 ×5; J1650; J3490; 96372; 99285

== ENCOUNTER 2018-06-28 02:12 | Emergency (ER) | payer MEDICARE, OTHER ==
[2018-06-28] MEDS ORDERED: ONDANSETRON HCL INJ/PF 4 MG/2 ML SDV IV ONE (02:21)
[2018-06-28 03:01] LABS: ABSOLUTE BASOPHILS # (AUTO) 0.1 10^3/uL (0.0-0.2); ABSOLUTE EOSINOPHILS # (AUTO) 0.1 10^3/uL (0.0-0.6); ABSOLUTE LYMPHOCYTES (AUTO) 1.3 10^3/uL (0.5-4.7); ABSOLUTE MONOCYTES (AUTO) 0.5 10^3/uL (0.1-1.4); ABSOLUTE NEUT (AUTO) 6.9 10^3/uL (1.7-8.2); BASOPHILS % (AUTO) 0.6 % (0-2); EOSINOPHILS % (AUTO) 1.1 % (0-6); HEMATOCRIT 47.2 % (37.9-51.0); HEMOGLOBIN 15.7 g/dL (13.5-17.0); MEAN CORPUSCULAR HEMOGLOBIN 28.6 pg (27.0-33.4); MEAN CORPUSCULAR HGB CONC 33.3 g/dL (32.0-36.0); MEAN CORPUSCULAR VOLUME 86 fl (80-97); MONOCYTES % (AUTO) 5.2 % (3-13); PLATELET COUNT 242 10^3/uL (150-450); RED BLOOD COUNT 5.49 10^6/uL (4.35-5.55); SEGMENTED NEUTROPHILS % (AUTO) 78.1 % (42-78); TOTAL CELLS COUNTED % (AUTO) 100 %; WHITE BLOOD COUNT 8.9 10^3/uL (4.0-10.5)
[2018-06-28 03:23] LABS: ALANINE AMINOTRANSFERASE 36 U/L (21-72); ALBUMIN 3.7 g/dL (3.5-5.0); ALKALINE PHOSPHATASE 81 U/L (38-126); ANION GAP 12 (5-19); ASPARTATE AMINO TRANSFERASE 27 U/L (17-59); BILIRUBIN,DIRECT 0.4 mg/dL (0.0-0.4); BILIRUBIN,TOTAL 0.7 mg/dL (0.2-1.3); BLOOD UREA NITROGEN 19 mg/dL (7-20); CALCIUM 9.5 mg/dL (8.4-10.2); CARBON DIOXIDE 31 mmol/L (22-30); CHLORIDE 99 mmol/L (98-107); GLUCOSE 252 mg/dL (75-110); LIPASE 113.7 U/L (23-300); POTASSIUM 4.6 mmol/L (3.6-5.0); SODIUM 141.6 mmol/L (137-145); TOTAL PROTEIN 7.1 g/dL (6.3-8.2)
[2018-06-28] MEDS ORDERED: METFORMIN HCL 500 MG TABLET PO ONE (04:25)
[2018-06-28] MEDS ORDERED: AMLODIPINE BESYLATE 5 MG TABLET PO ONE (04:25)
[2018-06-28 04:49] LABS: VENOUS BLOOD BASE EXCESS 6.2 mmol/L; VENOUS BLOOD HCO3 34.1 mmol/L (20-32); VENOUS BLOOD PCO2 62.5 mmHg (35-63); VENOUS BLOOD PH 7.36 (7.30-7.42)
--- NOTE | 2018-06-28 04:59 | RADIOLOGY REPORT (SQ) ---
EXAM DESCRIPTION: CT ABDOMEN PELVIS WITH IV CONTRAST COMPLETED DATE/TME: 06/28/2018 02:21 CLINICAL HISTORY: 83 years, Male, vomiting COMPARISON: None. TECHNIQUE: 443 Images stored on PACS. All CT scanners at this facility use dose modulation, iterative reconstruction, and/or weight based dosing when appropriate to reduce radiation dose to as low as reasonably achievable (ALARA). [facility]: Dose Right [facility]: CareDose [facility]: Dose Right [facility]: Teradose 4D [facility]: [employer] LIMITATIONS: None. FINDINGS: Visualized lung bases are unremarkable. Osseous structures are grossly intact. Fatty infiltrative change to the liver. The spleen, adrenal glands, pancreas, and left kidney are unremarkable. Simple appearing right renal cysts. The gallbladder is present. Portions of the right abdomen were not included on the exam due to patient body habitus. No gross evidence for bowel obstruction. Left hip prosthesis with associated streak artifact. Large amount of stool in the colon and rectal vault with minor surrounding inflammation which could reflect minor proctitis. Sigmoid diverticulosis. No CT evidence for diverticulitis. Appendix not well seen. No pericecal inflammation IMPRESSION: Large amount stool in the colon and rectal vault. Minor surrounding inflammatory change which could reflect minor proctitis. Fatty infiltrative change to the liver. Sigmoid diverticulosis without CT evidence for diverticulitis TECHNICAL DOCUMENTATION: Quality ID # 436: Final reports with documentation of one or more dose reduction techniques (e.g., Automated exposure control, adjustment of the mA and/or kV according to patient size, use of iterative reconstruction technique) copyright 2010 [employer] All Rights Reserved
[2018-06-28 06:43] LABS: APPEARANCE,URINE CLEAR; BILIRUBIN,URINE NEGATIVE (NEGATIVE); COLOR,URINE YELLOW; GLUCOSE, URINE 50 mg/dL (NEGATIVE); KETONES,URINE TRACE mg/dL (NEGATIVE); LEUKOCYTE ESTERASE,URINE NEGATIVE (NEGATIVE); NITRITE,URINE NEGATIVE (NEGATIVE); PROTEIN,URINE 30 mg/dL (NEGATIVE); URINE SPECIFIC GRAVITY 1.028
--- NOTE | 2018-06-28 06:50 | ER Document Report ---
ED General - General Chief Complaint: Nausea/Vomiting Stated Complaint: VOMITING Time Seen by Provider: 06/28/18 02:20 Primary Care Provider: LITZY FORMAN PA [Primary Care Provider] - Follow up as needed Notes: Patient is a 83-year-old male presents to the emergency department via EMS with his . states patient has vomited 4 times in the last 2 days. She was concerned because he was complaining of generalized periumbilical abdominal pain which is what prompted her to call [phone]. is denying with the patient has had any fever or diarrhea. States last bowel movement was this morning. states patient has a history of dementia, hypertension, diabetes, osteoarthritis. States the patient refuses to walk. states patient has had no spinal cord injury he just refuses to walk. also states due to patient's dementia he sometimes forgets his medications. states that she tries to give him his medications and sometimes he refuses. Medications: Amlodipine, metformin, BuSpar, Depakote Allergies: Atenolol, niacin TRAVEL OUTSIDE OF THE [place] IN LAST 30 DAYS: No - Related Data Allergies/Adverse Reactions: atenolol Allergy (Verified 06/28/18 02:32) Unknown reaction niacin [From Niaspan Extended-Release] Allergy (Verified 06/28/18 02:32) UNKNOW REACTION Past Medical History - General Information source: Relative - Social History Smoking Status: Former Smoker Frequency of alcohol use: None Drug Abuse: None Family History: Reviewed & Not Pertinent, CAD, COPD, CVA Patient has suicidal ideation: No Patient has homicidal ideation: No - Past Medical History Cardiac Medical History: Reports: Hx Congestive Heart Failure, Hx Coronary Artery Disease, Hx Hypercholesterolemia, Hx Hypertension - MEDICATED Denies: Hx Heart Attack Neurological Medical History: Denies: Hx Cerebrovascular Accident, Hx Seizures Endocrine Medical History: Reports: Hx Diabetes Mellitus Type 2 Renal/ Medical History: Denies: Hx Peritoneal Dialysis Malignancy Medical History: Reports Hx Prostate Cancer - Getting radiation therapy in the burn at this time 06/16/2015 GI Medical History: Reports: Hx Gastroesophageal Reflux Disease. Denies: Hx Hepatitis, Hx Hiatal Hernia, Hx Ulcer Musculoskeletal Medical History: Reports Hx Arthritis, Reports Hx Musculoskeletal Deformity, Reports Hx Musculoskeletal Trauma Psychiatric Medical History: Reports: Hx Anxiety Traumatic Medical History: Reports: Hx Fractures Infectious Medical History: Denies: Hx Hepatitis Past Surgical History: Reports: Hx Orthopedic Surgery - left hip, left knee. Denies: Hx Open Heart Surgery, Hx Pacemaker - Immunizations Hx Diphtheria, Pertussis, Tetanus Vaccination: No Review of Systems - Review of Systems Constitutional: No symptoms reported EENT: No symptoms reported Cardiovascular: No symptoms reported Respiratory: No symptoms reported Gastrointestinal: See HPI Genitourinary: No symptoms reported Male Genitourinary: No symptoms reported Musculoskeletal: See HPI Skin: No symptoms reported Hematologic/Lymphatic: No symptoms reported Neurological/Psychological: See HPI Physical Exam - Vital signs Vitals: Resp 13 06/28/18 02:22 - Notes Notes: GENERAL: Alert, interacts well. No acute distress. HEAD: Normocephalic, atraumatic. EYES: Pupils equal, round, and reactive to light. Extraocular movements intact. ENT: Oral mucosa moist, tongue midline. NECK: Full range of motion. Supple. Trachea midline. LUNGS: Clear to auscultation bilaterally, no wheezes, rales, or rhonchi. No respiratory distress. HEART: Regular rate and rhythm. No murmur ABDOMEN: Soft, non-tender. Non-distended. Bowel sounds present in all 4 quadrants. No McBurney's point tenderness, no Garnica sign noted. EXTREMITIES: Moves all 4 extremities spontaneously and on command. No edema, normal radial and dorsalis pedis pulses bilaterally. No cyanosis. BACK: no cervical, thoracic, lumbar midline tenderness. No saddle anesthesia, normal distal neurovascular exam. NEUROLOGICAL: Alert to name and place which is patient's baseline per . Normal speech. PSYCH: Normal affect, normal mood. SKIN: Warm, dry, normal turgor. No rashes or lesions noted. Genitalia and rectal exam: Phoenix Coon RN. Uncircumcised penis no active discharge at the meatus, bilateral testicles descended, nonerythematous, nontender bilaterally. Rectum has good tone patient denies pain no erythema or skin breakdown noted patient's rectum or sacral area. Course - Re-evaluation Re-evalutation: 06/28/18 06:58 Abdomen/Pelvis CT 06/28/18 02:21 IMPRESSION: Large amount stool in the colon and rectal vault. Minor surrounding inflammatory change which could reflect minor proctitis. Fatty infiltrative change to the liver. Sigmoid diverticulosis without CT evidence for diverticulitis TECHNICAL DOCUMENTATION: Quality ID # 436: Final reports with documentation of one or more dose reduction techniques (e.g., Automated exposure control, adjustment of the mA and/or kV according to patient size, use of iterative reconstruction technique) copyright 2011 [employer]- All Rights Reserved Laboratory 06/28/18 06/28/18 06/28/18 02:45 02:45 04:24 WBC 8.9 RBC 5.49 Hgb 15.7 Hct 47.2 MCV 86 MCH 28.6 MCHC 33.3 RDW 14.0 Plt Count 242 Seg Neutrophils % 78.1 H Lymphocytes % 15.0 Monocytes % 5.2 Eosinophils % 1.1 Basophils % 0.6 Absolute Neutrophils 6.9 Absolute Lymphocytes 1.3 Absolute Monocytes 0.5 Absolute Eosinophils 0.1 Absolute Basophils 0.1 VBG pH 7.36 VBG pCO2 62.5 VBG HCO3 34.1 H VBG Base Excess 6.2 Sodium 141.6 Potassium 4.6 Chloride 99 Carbon Dioxide 31 H Anion Gap 12 BUN 19 Creatinine 0.69 Est GFR ( Amer) > 60 Est GFR (Non-Af Amer) > 60 Glucose 252 H Calcium 9.5 Total Bilirubin 0.7 Direct Bilirubin 0.4 Neonat Total Bilirubin Not Reportable Neonat Direct Bilirubin Not Reportable Neonat Indirect Bili Not Reportable AST 27 ALT 36 Alkaline Phosphatase 81 Total Protein 7.1 Albumin 3.7 Lipase 113.7 Urine Color Urine Appearance Urine pH Ur Specific Kimball Urine Protein Urine Glucose (UA) Urine Ketones Urine Blood Urine Nitrite Urine Bilirubin Urine Urobilinogen Ur Leukocyte Esterase Urine WBC (Auto) Urine RBC (Auto) Urine Mucus (Auto) Urine Ascorbic Acid 06/28/18 06:23 WBC RBC Hgb Hct MCV MCH MCHC RDW Plt Count Seg Neutrophils % Lymphocytes % Monocytes % Eosinophils % Basophils % Absolute Neutrophils Absolute Lymphocytes Absolute Monocytes Absolute Eosinophils Absolute Basophils VBG pH VBG pCO2 VBG HCO3 VBG Base Excess Sodium Potassium Chloride Carbon Dioxide Anion Gap BUN Creatinine Est GFR ( Amer) Est GFR (Non-Af Amer) Glucose Calcium Total Bilirubin Direct Bilirubin Neonat Total Bilirubin Neonat Direct Bilirubin Neonat Indirect Bili AST ALT Alkaline Phosphatase Total Protein Albumin Lipase Urine Color YELLOW Urine Appearance CLEAR Urine pH 7.0 Ur Specific Kimball 1.028 Urine Protein 30 H Urine Glucose (UA) 50 H Urine Ketones TRACE H Urine Blood NEGATIVE Urine Nitrite NEGATIVE Urine Bilirubin NEGATIVE Urine Urobilinogen 4.0 H Ur Leukocyte Esterase NEGATIVE Urine WBC (Auto) 2 Urine RBC (Auto) 1 Urine Mucus (Auto) RARE Urine Ascorbic Acid NEGATIVE Patient has remained hypertensive during his stay in the emergency department. I have given him his prescribed dose of amlodipine. Patient continues to deny headache, blurred vision, chest pain, shortness of breath. I have discussed with the importance of making the patient take his antihypertensive medications. voices understanding. CT imaging is as above, labs show no signs of leukocytosis, no signs of anemia. Urine shows no signs of infection. Patient has had no further episodes of vomiting in the emergency department. states patient is "acting normally." states the patient was complaining of generalized periumbilical pain but is denying any pain upon my examination. When I asked the if the patient was complaining of any continued abdominal pain while in the emergency department she states he has denied any abdominal pain to her as well. Discussed close follow-up with primary care provider close return precautions. Patient stable for discharge. 06/28/18 07:48 Patient's blood pressure noted to be 164/98. - Vital Signs Vital signs: Temp Pulse Resp BP Pulse Ox 98.2 F 13 164/104 H 97 06/28/18 07:01 06/28/18 07:01 06/28/18 06:52 06/28/18 07:01 - Laboratory Result Diagrams: 06/28/18 02:45 06/28/18 02:45 Laboratory results interpreted by me: 06/28/18 06/28/18 06/28/18 02:45 02:45 04:24 Seg Neutrophils % 78.1 H VBG HCO3 34.1 H Carbon Dioxide 31 H Glucose 252 H Urine Protein Urine Glucose (UA) Urine Ketones Urine Urobilinogen 06/28/18 06:23 Seg Neutrophils % VBG HCO3 Carbon Dioxide Glucose Urine Protein 30 H Urine Glucose (UA) 50 H Urine Ketones TRACE H Urine Urobilinogen 4.0 H Discharge - Discharge Clinical Impression: Vomiting Qualifiers: Vomiting type: unspecified Vomiting Intractability: non-intractable Nausea presence: unspecified Qualified Code(s): R11.10 - Vomiting, unspecified Hypertension Qualifiers: Hypertension type: unspecified Qualified Code(s): I10 - Essential (primary) hypertension Condition: Stable Disposition: HOME, SELF-CARE Instructions: High Blood Pressure ([facility]), Vomiting ([facility]) Additional Instructions: As we discussed your has been seen and treated in the department for his episodes of vomiting and periumbilical abdominal pain. His blood pressure is noted to be elevated at today's visit. We have given him a dose of his at home antihypertensive medications. Please make sure you help him take his medications daily. Please also make sure you follow-up with his primary care provider in the next 24 to 48 hours. Return to the emergency room should you have any other concerns. Forms: Elevated Blood Pressure Referrals: LITZY FORMAN PA [Primary Care Provider] - Follow up as needed
--- NOTE | 2018-06-28 06:58 | EKG REPORT ---
SEVERITY:- ABNORMAL ECG - SINUS RHYTHM VENTRICULAR PREMATURE COMPLEX LEFT ANTERIOR FASCICULAR BLOCK BORDERLINE PROLONGED QT INTERVAL : Confirmed by: Cheri Alanis 28-Jun-2018 06:57:22
[2018-06-28 11:52] VITALS: BP 149/91
== END 2018-06-28 12:14 | disposition home or self-care (01) ==
LOC: ER 02:12
DX: R11.2 Nausea with vomiting, unspecified (principal); R10.33 Periumbilical pain; K57.10 Diverticulosis of small intestine without perforation or abscess without bleeding; I10 Essential (primary) hypertension; E11.9 Type 2 diabetes mellitus without complications; I25.10 Atherosclerotic heart disease of native coronary artery without angina pectoris; F03.90 Unspecified dementia, unspecified severity, without behavioral disturbance, psychotic disturbance, mood disturbance, and anxiety; Z79.899 Other long term (current) drug therapy; Z79.84 Long term (current) use of oral hypoglycemic drugs; Z88.8 Allergy status to other drugs, medicaments and biological substances; Z85.46 Personal history of malignant neoplasm of prostate
CPT/HCPCS: 93005; 99285; 51701; 96374; 36415; 87086; 83690; 85025; 80053; 81001; 82803; 74177; 93010; A9270; J2405

== ENCOUNTER 2018-06-30 01:02 | Inpatient (IN) | payer MEDICARE, OTHER ==
[2018-06-30] MEDS ORDERED: NORMAL SALINE 1000 ML 1,000 ML IV ONE (01:25)
[2018-06-30 01:40] LABS: INTERNATIONAL RATION (INR) 1.17; PROTHROMBIN TIME 15.5 SEC (11.4-15.4)
[2018-06-30 01:41] LABS: ABSOLUTE BASOPHILS # (AUTO) 0.1 10^3/uL (0.0-0.2); ABSOLUTE LYMPHOCYTES (AUTO) 1.6 10^3/uL (0.5-4.7); ABSOLUTE MONOCYTES (AUTO) 1.2 10^3/uL (0.1-1.4); ABSOLUTE NEUT (AUTO) 10.6 10^3/uL (1.7-8.2); BASOPHILS % (AUTO) 0.6 % (0-2); EOSINOPHILS % (AUTO) 0.3 % (0-6); HEMATOCRIT 46.1 % (37.9-51.0); MEAN CORPUSCULAR HGB CONC 32.5 g/dL (32.0-36.0); MEAN CORPUSCULAR VOLUME 86 fl (80-97); MONOCYTES % (AUTO) 8.6 % (3-13); PLATELET COUNT 215 10^3/uL (150-450); RED BLOOD COUNT 5.36 10^6/uL (4.35-5.55); SEGMENTED NEUTROPHILS % (AUTO) 78.5 % (42-78); TOTAL CELLS COUNTED % (AUTO) 100 %; WHITE BLOOD COUNT 13.5 10^3/uL (4.0-10.5)
[2018-06-30 01:43] LABS: ALANINE AMINOTRANSFERASE 41 U/L (21-72); ALBUMIN 3.2 g/dL (3.5-5.0); ALKALINE PHOSPHATASE 83 U/L (38-126); ANION GAP 8 (5-19); ASPARTATE AMINO TRANSFERASE 27 U/L (17-59); BILIRUBIN,DIRECT 0.5 mg/dL (0.0-0.4); BILIRUBIN,TOTAL 1.5 mg/dL (0.2-1.3); BLOOD UREA NITROGEN 27 mg/dL (7-20); CALCIUM 9.4 mg/dL (8.4-10.2); CARBON DIOXIDE 32 mmol/L (22-30); CHLORIDE 99 mmol/L (98-107); GLUCOSE 195 mg/dL (75-110); POTASSIUM 4.2 mmol/L (3.6-5.0); TOTAL PROTEIN 6.3 g/dL (6.3-8.2)
[2018-06-30] MEDS: ACETAMINOPHEN 325 MG TABLET PO ONE ×2 (01:47→01:55)
[2018-06-30 02:17] LABS: VENOUS BLOOD BASE EXCESS 6.3 mmol/L; VENOUS BLOOD HCO3 32.8 mmol/L (20-32); VENOUS BLOOD PCO2 54.2 mmHg (35-63); VENOUS BLOOD PH 7.4 (7.30-7.42)
--- NOTE | 2018-06-30 02:39 | RADIOLOGY REPORT (SQ) ---
EXAM DESCRIPTION: XR CHEST 1 VIEW COMPLETED DATE/TME: 06/30/2018 01:24 CLINICAL HISTORY: 83 years, Male, fever COMPARISON: None. NUMBER OF VIEWS: One TECHNIQUE: Upright AP view of the chest LIMITATIONS: None. FINDINGS: The lungs are clear. The heart is enlarged with a tortuous aorta. There is no pneumothorax or pleural effusion. There are changes of anterior cervical fusion. There is no intraperitoneal free air. IMPRESSION: No acute cardiopulmonary abnormality copyright 2010 [employer]- All Rights Reserved
--- NOTE | 2018-06-30 04:19 | ER Document Report ---
ED General - General Chief Complaint: Altered Mental Status Stated Complaint: ALTERED MENTAL STATUS Time Seen by Provider: 06/30/18 01:22 Primary Care Provider: LITZY FORMAN PA [Primary Care Provider] - Follow up as needed TRAVEL OUTSIDE OF THE [place] IN LAST 30 DAYS: No - HPI Notes: Patient is an 83-year-old male brought into the emergency department via EMS. Evidently he was seen here 2 days ago for nausea and vomiting. states that since then he has been more confused, weak. He has had multiple episodes of diarrhea. She states normally he is able to assist her with rolling and cleaning. He has not been able to, so she states he has been laying in his feces for the last 24 hours. The patient is not a reliable historian. He does deny any pain at this time. Patient's states he has been taking his medications. - Related Data Allergies/Adverse Reactions: atenolol Allergy (Verified 06/28/18 02:32) Unknown reaction niacin [From Niaspan Extended-Release] Allergy (Verified 06/28/18 02:32) UNKNOW REACTION Past Medical History - General Information source: Relative - - Social History Smoking Status: Unknown if Ever Smoked Lives with: Spouse/Significant other Family History: Reviewed & Not Pertinent, CAD, COPD, CVA Patient has suicidal ideation: No Patient has homicidal ideation: No - Past Medical History Cardiac Medical History: Reports: Hx Congestive Heart Failure, Hx Coronary Artery Disease, Hx Hypercholesterolemia, Hx Hypertension - MEDICATED Denies: Hx Heart Attack Neurological Medical History: Denies: Hx Cerebrovascular Accident, Hx Seizures Endocrine Medical History: Reports: Hx Diabetes Mellitus Type 2 Renal/ Medical History: Denies: Hx Peritoneal Dialysis Malignancy Medical History: Reports Hx Prostate Cancer - Getting radiation therapy in the burn at this time 06/16/2015 GI Medical History: Reports: Hx Gastroesophageal Reflux Disease. Denies: Hx Hepatitis, Hx Hiatal Hernia, Hx Ulcer Musculoskeletal Medical History: Reports Hx Arthritis, Reports Hx Musculoskeletal Deformity, Reports Hx Musculoskeletal Trauma Psychiatric Medical History: Reports: Hx Anxiety Traumatic Medical History: Reports: Hx Fractures Infectious Medical History: Denies: Hx Hepatitis Past Surgical History: Reports: Hx Orthopedic Surgery - left hip, left knee. Denies: Hx Open Heart Surgery, Hx Pacemaker - Immunizations Hx Diphtheria, Pertussis, Tetanus Vaccination: No Review of Systems - Review of Systems -: Yes ROS unobtainable due to patient's medical condition - 12 systems negative per , patient with dementia Physical Exam - Vital signs Vitals: Temp 99 F 06/30/18 01:23 - Notes Notes: 83-year-old male, smells strongly of feces, and in no apparent distress. Vital signs reviewed, please refer to chart. Head is normocephalic, atraumatic. Pupils equal round, reactive to light. Neck is supple without meningismus. Heart is regular rate and rhythm. Lungs are clear to auscultation bilaterally. Abdomen is soft, nontender, normoactive bowel sounds throughout. Extremities without cyanosis, clubbing. Posterior calves are nontender. Peripheral pulses a re equal. Skin is warm and dry. Patient is awake, alert, oriented to person and place but disoriented to time. Unable to complete a thorough neurological exam secondary to the patient's dementia. He moves all 4 extremities spontaneously. Dysarthria noted, no gross facial asymmetry. He has generalized weakness, but no focal findings on strength testing. Course - Re-evaluation Re-evalutation: 06/30/18 04:21 Patient presents to the emergency department for evaluation. On arrival he is mildly tachycardic. It was reported to me that he had a axillary temperature of 100 per EMS. Septic work-up was initiated. Laboratory investigations were largely unremarkable. His creatinine is 1, his baseline seems to be around 0.6. He has no significant electrolyte abnormalities. He did have frequent PVCs on telemetry, noted as well on EKG. During the course of his stay, the patient did have a significant amount of diarrhea. Sample obtained and sent to the lab for testing. We will continue to follow. 06/30/18 05:18 C. difficile testing was negative. Patient's heart rate remained in the 90s to low 100s, even when he was sleeping. I went in to discuss findings with the patient's . I had some difficulty understanding what the patient was saying, as I had throughout the course of his stay. Patient's then tells me that this is all brand-new. She states that over the last 3 days he has not been speaking and enunciating clearly. Head CT was ordered, pending at this time. 06/30/18 05:40 No significant bleed on head CT. There does appear to be an old stroke, which is new when compared to his prior study of 2007. Patient's resting heart rate still remains above 90, rolling over in the bed his heart rate will become 1 10- 1 15. He had multiple episodes of diarrhea here. His renal function is normal, but his creatinine has increased in just the last 2 days. I spoke with Dr. Gordillo, he will admit the patient for further care. - Vital Signs Vital signs: Temp Pulse Resp BP Pulse Ox 99 F 17 127/85 H 94 06/30/18 01:23 06/30/18 03:01 06/30/18 03:01 06/30/18 03:01 - Laboratory Result Diagrams: 06/30/18 01:17 06/30/18 01:17 Laboratory results interpreted by me: 06/30/18 06/30/18 06/30/18 01:17 01:17 01:17 WBC 13.5 H Seg Neutrophils % 78.5 H Lymphocytes % 12.0 L Absolute Neutrophils 10.6 H PT 15.5 H VBG HCO3 Carbon Dioxide 32 H BUN 27 H Glucose 195 H Total Bilirubin 1.5 H Direct Bilirubin 0.5 H Albumin 3.2 L Urine Protein Urine Glucose (UA) Urine Bilirubin Urine Urobilinogen Urine Ascorbic Acid 06/30/18 06/30/18 01:55 03:55 WBC Seg Neutrophils % Lymphocytes % Absolute Neutrophils PT VBG HCO3 32.8 H Carbon Dioxide BUN Glucose Total Bilirubin Direct Bilirubin Albumin Urine Protein 100 H Urine Glucose (UA) 50 H Urine Bilirubin SMALL H Urine Urobilinogen 2.0 H Urine Ascorbic Acid 20 H - Diagnostic Test Radiology reviewed: Reports reviewed Radiology results interpreted by me: 06/30/18 04:22 Chest X-Ray 06/30/18 01:24 IMPRESSION: No acute cardiopulmonary abnormality copyright 2011 [employer]- All Rights Reserved - EKG Interpretation by Me Additional EKG results interpreted by me: 06/30/18 04:22 Sinus mechanism at a rate of 92 bpm with PACs and frequent PVCs. Left axis deviation. Nonspecific ST changes, but no acute changes concerning for ischemia or infarction. Discharge - Discharge Clinical Impression: Weakness, Failure to thrive in adult Diarrhea Qualifiers: Diarrhea type: presumed infectious Qualified Code(s): R19.7 - Diarrhea, unspecified Altered mental status Qualifiers: Altered mental status type: unspecified Qualified Code(s): R41.82 - Altered mental status, unspecified Condition: Stable Disposition: ADMITTED OBSERVATION Admitting Provider: Duy (Hospitalist) Unit Admitted: Telemetry Referrals: LITZY FORMAN PA [Primary Care Provider] - Follow up as needed
[2018-06-30 04:24] LABS: APPEARANCE,URINE SLIGHTLY-CLOUDY; BILIRUBIN,URINE SMALL (NEGATIVE); GLUCOSE, URINE 50 mg/dL (NEGATIVE); KETONES,URINE NEGATIVE (NEGATIVE); LEUKOCYTE ESTERASE,URINE NEGATIVE (NEGATIVE); NITRITE,URINE NEGATIVE (NEGATIVE); PROTEIN,URINE 100 mg/dL (NEGATIVE); URINE SPECIFIC GRAVITY 1.033
[2018-06-30 04:25] LABS: COLOR,URINE BROWN
[2018-06-30] MEDS ORDERED: IPRATROPIUM/ALBUTEROL 0.5-2.5 MG/3 ML AMPUL NEB PRN (05:38)
[2018-06-30] MEDS ORDERED: ACETAMINOPHEN 325 MG TABLET PO PRN (05:38)
[2018-06-30] MEDS ORDERED: NORMAL SALINE 1000 ML 1,000 ML IV SCH (05:45)
--- NOTE | 2018-06-30 05:45 | RADIOLOGY REPORT (SQ) ---
EXAM DESCRIPTION: CT HEAD WITHOUT IV CONTRAST COMPLETED DATE/TME: 06/30/2018 05:08 CLINICAL HISTORY: 83 years Male, altered mental status COMPARISON: 01/28/17 TECHNIQUE: No contrast. Coronal and sagittal reformat. This exam was performed according to our departmental dose-optimization program, which includes automated exposure control, adjustment of the mA and/or kV according to patient size and/or use of iterative reconstruction technique. FINDINGS: Moderate cytotoxic edema of the right parietal lobe suggestive of subacute ischemia of the right middle cerebral arterial distribution. No hemorrhage. No mass, mass effect, or midline shift. Confluent white matter microangiopathy, parenchymal volume loss, and atherosclerosis. Brain and extra-axial structures appear otherwise intact. IMPRESSION: Subacute right parietal ischemia. Cannot exclude underlying infectious or neoplastic processes. MRI/contrast CT surveillance recommended.
[2018-06-30] MEDS: HEPARIN SOD (PORCINE) 5,000 UNIT/ML 1 ML SYRINGE SUBCUT SCH ×3 (06:06→21:04)
[2018-06-30] MEDS ORDERED: ASPIRIN 300 MG SUPP, RECTAL PR ONE (06:13)
[2018-06-30] MEDS ORDERED: DEXTROSE 40% GEL 15 GM TUBE PO PRN ×2 (06:24)
[2018-06-30] MEDS ORDERED: GLUCAGON,HUMAN RECOMB 1 MG INJ IM PRN (06:24)
[2018-06-30] MEDS ORDERED: DEXTROSE 50%-WATER 25 GM/50 ML DISP.SYRIN IV PRN ×2 (06:24)
--- NOTE | 2018-06-30 06:24 | PDOC H&P ---
History of Present Illness Admission Date/PCP: JEANNIE CHRISTIANSON Patient complains of: Slurred speech and weakness History of Present Illness: CRISTELA OCAMPO is a 83 year old male with a past medical history of diabetes, hypertension, advanced dementia requiring 100% assistance with ADLs and bedbound state over the last 18 months. Patient presented 48 hours ago with nausea and vomiting found to have a nonobstructive constipation was discharged home only to return with slurred speech and diarrhea. Head CT reveals acute right MCA a CVA. He started on aspirin and referred to the hospitalist for admission. Patient's at bedside verifies a rapid decline over the last 18 months and a DNR CODE STATUS. She does not wish aggressive measures of NG tube or central line placement. Past Medical History Cardiac Medical History: Reports: Congestive Heart Failure, Coronary Artery Disease, Hyperlipidema, Hypertension - MEDICATED Denies: Myocardial Infarction Neurological Medical History: Denies: Seizures Endocrine Medical History: Reports: Diabetes Mellitus Type 2 GI Medical History: Reports: Gastroesophageal Reflux Disease Denies: Hepatitis, Hiatal Hernia Musculoskeltal Medical History: Reports: Arthritis Psychiatric Medical History: Reports: Dementia Hematology: Denies: Anemia, Sickle Cell Disease Past Surgical History Past Surgical History: Reports: Orthopedic Surgery - left hip, left knee Denies: Pacemaker Social History Information Source: Patient Lives with: Spouse/Significant other Smoking Status: Unknown if Ever Smoked Frequency of Alcohol Use: None Drugs: None - Advance Directive Resuscitation Status: Do Not Resuscitate Family History Family History: Reviewed & Not Pertinent, CAD, COPD, CVA Parental Family History Reviewed: Yes Children Family History Reviewed: Yes Sibling(s) Family History Reviewed.: Yes Medication/Allergy Home Medications: Amlodipine Besylate [Norvasc 5 mg Tablet] 5 mg PO BID #30 tablet 02/02/18 Buspirone HCl [Buspar 10 mg Tablet] 10 mg PO BID #30 tab 02/02/18 Divalproex Sodium [Depakote] 250 mg PO BID #30 tablet. 02/02/18 Metformin HCl 1,000 mg PO BID 06/28/18 Allergies/Adverse Reactions: atenolol Allergy (Verified 06/28/18 02:32) Unknown reaction niacin [From Niaspan Extended-Release] Allergy (Verified 06/28/18 02:32) UNKNOW REACTION Review of Systems ROS unobtainable: Due to mental status Physical Exam Vital Signs: Temp Pulse Resp BP Pulse Ox 99 F 17 127/85 H 94 06/30/18 01:23 06/30/18 03:01 06/30/18 03:01 06/30/18 03:01 Intake & Output 06/28/18 06/29/18 06/30/18 11:59 11:59 11:59 Intake Total 1000 Balance 1000 Weight 113.5 kg General appearance: PRESENT: no acute distress, disheveled, well-developed, well-nourished. ABSENT: cooperative, mild distress Head exam: PRESENT: atraumatic, normocephalic Eye exam: PRESENT: conjunctiva pink, EOMI, PERRLA. ABSENT: scleral icterus Ear exam: PRESENT: normal external ear exam Mouth exam: PRESENT: moist, tongue midline Neck exam: ABSENT: carotid bruit, JVD, lymphadenopathy, thyromegaly Respiratory exam: PRESENT: clear to auscultation khari. ABSENT: rales, rhonchi, wheezes Cardiovascular exam: PRESENT: RRR. ABSENT: diastolic murmur, rubs, systolic murmur Pulses: PRESENT: normal dorsalis pedis pul Vascular exam: PRESENT: normal capillary refill GI/Abdominal exam: PRESENT: normal bowel sounds, soft. ABSENT: distended, guarding, mass, organolmegaly, rebound, tenderness Rectal exam: PRESENT: deferred Extremities exam: PRESENT: full ROM. ABSENT: calf tenderness, clubbing, pedal edema Neurological exam: PRESENT: alert, altered, oriented to person, ataxia. ABSENT: oriented to place, oriented to time, oriented to situation, CN II-XII grossly intact Psychiatric exam: PRESENT: appropriate affect, normal mood. ABSENT: homicidal ideation, suicidal ideation Skin exam: PRESENT: dry, intact, warm. ABSENT: cyanosis, rash Results Laboratory Results: 06/30/18 01:17 06/30/18 01:17 06/30/18 06/30/18 06/30/18 01:17 01:17 01:17 WBC 13.5 H RBC 5.36 Hgb 15.0 Hct 46.1 MCV 86 MCH 28.0 MCHC 32.5 RDW 14.0 Plt Count 215 Seg Neutrophils % 78.5 H Lymphocytes % 12.0 L Monocytes % 8.6 Eosinophils % 0.3 Basophils % 0.6 Absolute Neutrophils 10.6 H Absolute Lymphocytes 1.6 Absolute Monocytes 1.2 Absolute Eosinophils 0.0 Absolute Basophils 0.1 VBG pH VBG pCO2 VBG HCO3 VBG Base Excess Sodium 139.0 Potassium 4.2 Chloride 99 Carbon Dioxide 32 H Anion Gap 8 BUN 27 H Creatinine 1.01 Est GFR ( Amer) > 60 Est GFR (Non-Af Amer) > 60 Glucose 195 H Lactic Acid 1.3 Calcium 9.4 Total Bilirubin 1.5 H AST 27 ALT 41 Alkaline Phosphatase 83 Total Protein 6.3 Albumin 3.2 L Urine Color Urine Appearance Urine pH Ur Specific [place] Urine Protein Urine Glucose (UA) Urine Ketones Urine Blood Urine Nitrite Ur Leukocyte Esterase Urine WBC (Auto) Urine RBC (Auto) 06/30/18 06/30/18 06/30/18 01:17 01:55 03:55 WBC RBC Hgb Hct MCV MCH MCHC RDW Plt Count Seg Neutrophils % Lymphocytes % Monocytes % Eosinophils % Basophils % Absolute Neutrophils Absolute Lymphocytes Absolute Monocytes Absolute Eosinophils Absolute Basophils VBG pH Cancelled 7.40 VBG pCO2 Cancelled 54.2 VBG HCO3 Cancelled 32.8 H VBG Base Excess Cancelled 6.3 Sodium Potassium Chloride Carbon Dioxide Anion Gap BUN Creatinine Est GFR ( Amer) Est GFR (Non-Af Amer) Glucose Lactic Acid Calcium Total Bilirubin AST ALT Alkaline Phosphatase Total Protein Albumin Urine Color BROWN Urine Appearance SLIGHTLY-CLOUDY Urine pH 5.0 Ur Specific [place] 1.033 Urine Protein 100 H Urine Glucose (UA) 50 H Urine Ketones NEGATIVE Urine Blood NEGATIVE Urine Nitrite NEGATIVE Ur Leukocyte Esterase NEGATIVE Urine WBC (Auto) 2 Urine RBC (Auto) 1 Impressions: Chest X-Ray 06/30/18 01:24 IMPRESSION: No acute cardiopulmonary abnormality copyright 2011 [employer]- All Rights Reserved Head CT 06/30/18 05:08 IMPRESSION: Subacute right parietal ischemia. Cannot exclude underlying infectious or neoplastic processes. MRI/contrast CT surveillance recommended. Assessment and Plan - Diagnosis (1) Acute CVA (cerebrovascular accident) Is this a current diagnosis for this admission?: Yes Plan: CVA care set deployed, IMCU admission, patient is unable to tolerate p.o., speech therapy consult. Not a candidate for aggressive measures and as such will not pursue additional imaging. Supportive care, discharge planning consulted. (2) Diabetes Is this a current diagnosis for this admission?: Yes Plan: Follow-up medication reconciliation for long-acting insulin, Humalog sliding scale as needed (3) Failure to thrive in adult Is this a current diagnosis for this admission?: Yes Plan: Secondary to profound dementia, complicated by acute CVA. DNR, discharge planning for fci placement. - Time Time Spent with patient: 35 or more minutes - Inpatient Certification Medical Necessity: Need Close Monitoring Due to Risk of Patient Decompensation
--- NOTE | 2018-06-30 06:52 | RADIOLOGY REPORT (SQ) ---
EXAM DESCRIPTION: XR ABDOMEN 2 VIEWS SUPINE ERECT COMPLETED DATE/TME: 06/30/2018 05:42 CLINICAL HISTORY: 83 years Male, impaction? COMPARISON: CT, June 28, 2018 NUMBER OF VIEWS/TECHNIQUE: Five FINDINGS: Intestinal gas pattern is within normal limits. Paucity of bowel gas. No suspicious calcification. Degenerative disc disease. Left total hip arthroplasty. Metallic lower pelvic, likely prostatic seeds. Stable 1.2 cm sclerotic lesion of the left iliac wing and stable 1.5 cm sclerotic lesion of the right iliac wing. IMPRESSION: Sclerotic lesions of the pelvis may indicate metastatic disease of indeterminate age. Consider comparison with older exams, whole body bone scan, and/or CT-PET as clinically warranted.
--- NOTE | 2018-06-30 09:28 | EKG REPORT ---
SEVERITY:- ABNORMAL ECG - ATRIAL FIBRILLATION VENTRICULAR TRIGEMINY LAD, CONSIDER LEFT ANTERIOR FASCICULAR BLOCK : Confirmed by: Esther Guzman MD 30-Jun-2018 09:27:32
[2018-06-30] MEDS: INSULIN LISPRO 100 UNIT/ML 3 ML VIAL SUBCUT SCH ×2 (12:25→18:05)
--- NOTE | 2018-06-30 17:22 | Progress Note ---
Provider Note Provider Note: CRISTELA OCAMPO is a 83 year old male with a past medical history of diabetes, hypertension, advanced dementia requiring 100% assistance with ADLs and bedbound state over the last 18 months who was admitted early this morning by the [facility] for acute CVA. Overnight events, vital signs, imaging and laboratory work-up was reviewed. Spoke with the nurse regarding the patient's current mental status, MENDs screening, and swallow screening results. Unfortunately, the patient remains n.p.o. due to failed bedside swallow screening. I did stop by the patient's room to speak with the patient's , however, she was out at the time. The patient was noted to be awake and alert, but pleasantly confused. He was unable to provide any HPI or insight to the goals of care. Agree with the plan of care as established by Dr. Gordillo. Continue IMCU admission with CVA care set. Aspirin MA daily. Begin statin therapy once cleared by [facility] AccuCheks every 6 hours with Humalog for sliding scale coverage and hypoglycemia protocol in place. Palliative care consultation; per previous provider the patient's would not be interested in PEG tube feedings. He may be more appropriate for hospice services. Supportive care; fall and aspiration precautions. Discharge planning is consulted.
[2018-06-30] MEDS: NORMAL SALINE 1000 ML 1,000 ML IV PRN (18:05)
[2018-06-30] MEDS: MIRTAZAPINE 15 MG TABLET PO SCH (21:04)
[2018-07-01] MEDS: INSULIN LISPRO 100 UNIT/ML 3 ML VIAL SUBCUT SCH ×4 (00:50→18:56)
[2018-07-01] MEDS: HEPARIN SOD (PORCINE) 5,000 UNIT/ML 1 ML SYRINGE SUBCUT SCH ×3 (05:38→21:15)
[2018-07-01] MEDS: NORMAL SALINE 1000 ML 1,000 ML IV PRN (05:40)
[2018-07-01 07:24] LABS: ABSOLUTE EOSINOPHILS # (AUTO) 0.1 10^3/uL (0.0-0.6); ABSOLUTE LYMPHOCYTES (AUTO) 0.7 10^3/uL (0.5-4.7); ABSOLUTE MONOCYTES (AUTO) 0.6 10^3/uL (0.1-1.4); ABSOLUTE NEUT (AUTO) 9.9 10^3/uL (1.7-8.2); BASOPHILS % (AUTO) 0.4 % (0-2); EOSINOPHILS % (AUTO) 0.5 % (0-6); HEMATOCRIT 43.1 % (37.9-51.0); LYMPHOCYTES % (AUTO) 6.5 % (13-45); MEAN CORPUSCULAR HEMOGLOBIN 27.8 pg (27.0-33.4); MEAN CORPUSCULAR HGB CONC 32.4 g/dL (32.0-36.0); MEAN CORPUSCULAR VOLUME 86 fl (80-97); MONOCYTES % (AUTO) 5.5 % (3-13); PLATELET COUNT 197 10^3/uL (150-450); RED BLOOD COUNT 5.02 10^6/uL (4.35-5.55); RED CELL DISTRIBUTION WIDTH 13.8 % (11.5-14.0); SEGMENTED NEUTROPHILS % (AUTO) 87.1 % (42-78); TOTAL CELLS COUNTED % (AUTO) 100 %; WHITE BLOOD COUNT 11.3 10^3/uL (4.0-10.5)
[2018-07-01 07:43] LABS: ANION GAP 10 (5-19); BLOOD UREA NITROGEN 20 mg/dL (7-20); CALCIUM 8.8 mg/dL (8.4-10.2); CARBON DIOXIDE 27 mmol/L (22-30); CHLORIDE 105 mmol/L (98-107); GLUCOSE 166 mg/dL (75-110); POTASSIUM 3.9 mmol/L (3.6-5.0); SODIUM 141.6 mmol/L (137-145)
[2018-07-01] MEDS: ASPIRIN 300 MG SUPP, RECTAL PR SCH (13:31)
[2018-07-01] MEDS ORDERED: HYDRALAZINE HCL INJ/PF 20 MG/1 ML SDV IV PRN (16:07)
--- NOTE | 2018-07-01 16:08 | PDOC PROGRESS REPORT ---
Subjective Progress Note for:: 07/01/18 Subjective:: CRISTELA OCAMPO is a 83 year old male with a past medical history of diabetes, hypertension, advanced dementia requiring 100% assistance with ADLs and bedbound state over the last 18 months who was admitted 06/30/2018 with subacute right MCA CVA. The patient was seen on morning rounds with his present. He was found resting in bed comfortably on room air. He is sleeping soundly and withdraws to tactile stimuli but does not wake enough to answer questions or follow commands. Per the patient's he has had advanced dementia for several years with an noted increase in the last few weeks. She reports that on a good day, he is able to complain about semi-recent politics though remains fixated on one particular subject, and then will deviate to discuss visual hallucinations (frequently comments that there are snakes in the room). Patient's reports that he often calls her by his sister's name, becomes easily confused and frustrated, but does follow simple commands with multiple prompting. He has been 100% bedbound and receiving total care by her for the previous 18 months. We discussed the imaging findings, and plans to have speech therapy, physical therapy, discharge planning, and palliative care/hospice consultations. ROS is limited secondary to patient's mental status; he does appear to be comfortable and the patient voices that he has not displayed any symptoms. She has no other questions or concerns at this time. No concerns per nursing. Reason For Visit: CVA SLURRED DEMENTIA FTT Physical Exam Vital Signs: Temp Pulse Resp BP Pulse Ox 99.1 F 86 16 146/82 H 100 07/01/18 03:31 07/01/18 15:51 07/01/18 15:51 07/01/18 03:31 07/01/18 15:51 Intake & Output 06/30/18 07/01/18 07/02/18 06:59 06:59 06:59 Intake Total 1000 1000 1000 Output Total 0 Balance 1000 1000 1000 Weight 113.5 kg 116.9 kg General appearance: PRESENT: no acute distress, obese, well-developed, well-no urished Head exam: PRESENT: atraumatic, normocephalic Eye exam: PRESENT: conjunctiva pink, EOMI, PERRLA. ABSENT: scleral icterus Ear exam: PRESENT: normal external ear exam Mouth exam: PRESENT: dry mucosa, tongue midline Teeth exam: PRESENT: poor dentation Neck exam: ABSENT: carotid bruit, JVD, lymphadenopathy, thyromegaly Respiratory exam: PRESENT: clear to auscultation khari, decreased breath sounds - Bibasilar, symmetrical, unlabored. ABSENT: rales, rhonchi, wheezes Cardiovascular exam: PRESENT: RRR. ABSENT: diastolic murmur, rubs, systolic murmur Pulses: PRESENT: normal dorsalis pedis pul Vascular exam: PRESENT: normal capillary refill GI/Abdominal exam: PRESENT: normal bowel sounds, soft. ABSENT: distended, g uarding, mass, organolmegaly, rebound, tenderness Rectal exam: PRESENT: deferred Extremities exam: PRESENT: full ROM - Spontaneous movements all extremities. ABSENT: calf tenderness, clubbing, pedal edema Neurological exam: PRESENT: CN II-XII grossly intact, other - Somnolent and present; at baseline is oriented to self only. ABSENT: motor sensory deficit Skin exam: PRESENT: dry, intact, warm. ABSENT: cyanosis, rash Results Laboratory Results: 07/01/18 07:01 07/01/18 07:01 07/01/18 07/01/18 07:01 07:01 WBC 11.3 H RBC 5.02 Hgb 14.0 Hct 43.1 MCV 86 MCH 27.8 MCHC 32.4 RDW 13.8 Plt Count 197 Seg Neutrophils % 87.1 H Lymphocytes % 6.5 L Monocytes % 5.5 Eosinophils % 0.5 Basophils % 0.4 Absolute Neutrophils 9.9 H Absolute Lymphocytes 0.7 Absolute Monocytes 0.6 Absolute Eosinophils 0.1 Absolute Basophils 0.0 Sodium 141.6 Potassium 3.9 Chloride 105 Carbon Dioxide 27 Anion Gap 10 BUN 20 Creatinine 0.72 Est GFR ( Amer) > 60 Est GFR (Non-Af Amer) > 60 Glucose 166 H Calcium 8.8 Impressions: Chest X-Ray 06/30/18 01:24 IMPRESSION: No acute cardiopulmonary abnormality copyright 2011 [employer]- All Rights Reserved Head CT 06/30/18 05:08 IMPRESSION: Subacute right parietal ischemia. Cannot exclude underlying infectious or neoplastic processes. MRI/contrast CT surveillance recommended. Abdomen X-Ray 06/30/18 05:42 IMPRESSION: Sclerotic lesions of the pelvis may indicate metastatic disease of indeterminate age. Consider comparison with older exams, whole body bone scan, and/or CT-PET as clinically warranted. Assessment and Plan - Diagnosis (1) Acute CVA (cerebrovascular accident) Is this a current diagnosis for this admission?: Yes Plan: Head CT revealed subacute right MCA distribution CVA. Due to the patient's advanced dementia, age, and baseline function he would not be a candidate for aggressive measures and as such additional imaging was not obtained. Patient's is agreeable with limited imaging and interventions. He is admitted to [facility] on continuous cardiac telemetry. He is provided rectal aspirin daily secondary to n.p.o. status. We will resume daily statin therapy once cleared by speech. Hypertension and and diabetes management as below. PT/ST consultations. Discharge planning is consulted. Palliative care/hospice consultation placed. (2) Dementia Is this a current diagnosis for this admission?: Yes Plan: Supportive therapy. Fall and aspiration precautions. Discharge planning is consulted. (3) Diabetes Qualifiers: Diabetes mellitus type: type 2 Is this a current diagnosis for this admission?: Yes Plan: Patient's home dose metformin is on hold. He is currently in n.p.o. status. Accu-Cheks every 6 hours with Humalog for sliding scale coverage and hypoglycemia protocol in place. (4) Failure to thrive in adult Is this a current diagnosis for this admission?: Yes Plan: Secondary to profound dementia, complicated by acute CVA. DNR status is confirmed with today. Discharge planning is consulted. Positive care/hospice services consultation today. (5) Hypertension Qualifiers: Hypertension type: unspecified Qualified Code(s): I10 - Essential (primary) hypertension Is this a current diagnosis for this admission?: Yes Plan: Blood pressures are acceptable; 146/82. Currently n.p.o.; IV hydralazine as needed for blood pressure control. - Time Time Spent with patient: 25-34 minutes Medications reviewed and adjusted accordingly: Yes Anticipated discharge: SNF - With hospice Within: within 48 hours
--- NOTE | 2018-07-01 16:55 | ADVANCED CARE ---
- Diagnosis (1) Acute CVA (cerebrovascular accident) Diagnosis Current: Yes (2) Dementia Diagnosis Current: Yes (3) Diabetes Diagnosis Current: Yes (4) Failure to thrive in adult Diagnosis Current: Yes (5) Hypertension Diagnosis Current: Yes Attendance: The patient, his , Mimi Busby, and the patient's current nurse, Radha. The patient did not participate in the conversation secondary to baseline mental status. Resuscitation Status: Do Not Resuscitate Discussion: We discussed the patient's prolonged dementia that has gradually worsening over the last several years resulting in him being bedbound and requiring total care by his for the last 17 months. Patient's reports that he is confused at baseline; oriented to self and occasionally family members only on his "good days." He is nonambulatory and incontinent of stool and urine. Patient's reports that she is noted a rapid decline over the last several weeks in the patient's alertness, ability to participate in care (can no longer roll from side to side with direction), and p.o. intake. She reports that she feels that she can no longer provide for total care at home due to physicality (patient is a large man while she is quite petite); but is uncertain about SNF placement. We did discuss the option of returning home with home health services, returning home with hospice services, or pursuing long- term care placement with either of the above. Patient's did express that the patient has been talking about recently; "it is time to go," and notes that he would not wish to "live this way." She does confirm his DNR status. We did discuss he has failed swallow screenings thus far and that if he did not become alert enough to safely take in nutrition by mouth, his only option would be long-term feeding through a PEG tube. She seems quite indecisive and leaning towards not pursuing this option. She is understandably concerned about him developing malnutrition and dehydration; we did discuss that this is a natural course at the end of life especially in patients with end-stage dementia and appeared to be reassured that he would not be in distress related to decreased p.o. intake. She is agreeable to meeting with palliative care and hospice services. She indicates that she likely will pursue this option but wishes to meet with them before making any finalized decisions. Care Planning Goals: DNR status Minimize interventions/invasive procedures. Meet with palliative care/hospice. Meet with discharge planning to discuss returning to home versus SNF for long- term care. Time Spent: 40 minutes
[2018-07-01] MEDS: MIRTAZAPINE 15 MG TABLET PO SCH (21:16)
[2018-07-02] MEDS: INSULIN LISPRO 100 UNIT/ML 3 ML VIAL SUBCUT SCH ×4 (00:04→18:48)
[2018-07-02] MEDS: HEPARIN SOD (PORCINE) 5,000 UNIT/ML 1 ML SYRINGE SUBCUT SCH (05:35)
[2018-07-02] MEDS ORDERED: DILTIAZEM HCL INJ 25 MG/5 ML VIAL IV ONE (10:06)
[2018-07-02] MEDS ORDERED: NORMAL SALINE 1000 ML 1,000 ML IV PRN (10:10)
[2018-07-02] MEDS ORDERED: LORAZEPAM INJ 2 MG/1 ML VIAL IV PRN (10:26)
[2018-07-02] MEDS ORDERED: ATROPINE SULFATE 1% OPH SOLN 5 ML BOTTLE SL PRN ×2 (10:26→13:47)
[2018-07-02] MEDS ORDERED: MORPHINE SULFATE 10 MG/ML INJ IV PRN (10:26)
[2018-07-02 11:27] LABS: ABSOLUTE BASOPHILS # (AUTO) 0.1 10^3/uL (0.0-0.2); ABSOLUTE EOSINOPHILS # (AUTO) 0.1 10^3/uL (0.0-0.6); ABSOLUTE LYMPHOCYTES (AUTO) 0.7 10^3/uL (0.5-4.7); ABSOLUTE MONOCYTES (AUTO) 0.8 10^3/uL (0.1-1.4); ABSOLUTE NEUT (AUTO) 8.9 10^3/uL (1.7-8.2); BASOPHILS % (AUTO) 0.6 % (0-2); EOSINOPHILS % (AUTO) 0.7 % (0-6); HEMATOCRIT 44.5 % (37.9-51.0); HEMOGLOBIN 14.5 g/dL (13.5-17.0); LYMPHOCYTES % (AUTO) 6.9 % (13-45); MEAN CORPUSCULAR HEMOGLOBIN 28.2 pg (27.0-33.4); MEAN CORPUSCULAR HGB CONC 32.6 g/dL (32.0-36.0); MEAN CORPUSCULAR VOLUME 86 fl (80-97); MONOCYTES % (AUTO) 7.2 % (3-13); PLATELET COUNT 239 10^3/uL (150-450); RED BLOOD COUNT 5.15 10^6/uL (4.35-5.55); SEGMENTED NEUTROPHILS % (AUTO) 84.6 % (42-78); TOTAL CELLS COUNTED % (AUTO) 100 %; WHITE BLOOD COUNT 10.5 10^3/uL (4.0-10.5)
[2018-07-02 11:44] LABS: ANION GAP 10 (5-19); BLOOD UREA NITROGEN 20 mg/dL (7-20); CARBON DIOXIDE 29 mmol/L (22-30); CHLORIDE 104 mmol/L (98-107); GLUCOSE 154 mg/dL (75-110); PHOSPHORUS 3.5 mg/dL (2.5-4.5); POTASSIUM 3.9 mmol/L (3.6-5.0); SODIUM 143.3 mmol/L (137-145)
--- NOTE | 2018-07-02 12:20 | PDOC TRANSFER SUMMARY ---
Addendum entered and electronically signed by KELECHI POLANCO NP-C 07/02/18 16:30: Provider Note Provider Note: Addendum: The patient demonstrated decreasing vital signs stability today; increased tachypnea, labile blood pressures, and tachycardia with frequent PVCs noted on telemetry. Heart rate consistently 120-150 despite symptomatic management of anxiety and pain with IV Ativan or morphine. Discussed with the hospice nurse liaison; agree that the patient is no longer safe for 2-hour transport to their inpatient care facility. The patient's is notified of patient's clinical status change; she is now at patient's bedside. Patient's discharge/transfer is canceled. Patient will remain in house for comfort care measures and expectant end-of-life care. Original Note: General - Admit/Disc Date/PCP Admission Date/Primary Care Provider: 06/30/18 05:50 JEANNIE CHRISTIANSON Discharge Date: 07/02/18 - Discharge Diagnosis (1) Acute CVA (cerebrovascular accident) Is this a current diagnosis for this admission?: Yes Summary: Head CT revealed subacute right MCA distribution CVA. Due to the patient's advanced dementia, age, and baseline function he would not be a candidate for aggressive measures and as such additional imaging was not obtained. Patient's is agreeable with limited imaging and interventions. The patient was admitted to [facility] on continuous cardiac telemetry; he was provided rectal aspirin daily secondary to his n.p.o. status. Unfortunately, the patient has remained lethargic, minimally responsive to verbal and tactile stimuli, and unable to participate in swallow screenings. He is deemed unsafe for n.p.o. with recommendations for alternate route of nutrition. Discussed with the patient's ; she is familiar with PEG tubes as her mother had one. States that her would not desire to have a PEG tube. She has met with discharge planning and hospice services. Patient's has elected to pursue comfort measures only and is agreeable to discharge to inpatient hospice facility. (2) Dementia Is this a current diagnosis for this admission?: Yes Summary: Patient with advanced dementia; confused at baseline, and bedbound x18 months. (3) Diabetes Is this a current diagnosis for this admission?: Yes Summary: The patient's home dose metformin is on hold. He is currently in n.p.o. status due to unsafe swallow and poor mentation. Have been monitoring Accu-Cheks every 6 hours with Humalog for sliding scale coverage and hypoglycemia protocol in place. (4) Failure to thrive in adult Is this a current diagnosis for this admission?: Yes Summary: Secondary to profound dementia, complicated by acute CVA. Patient's is in agreement with inpatient hospice/comfort care measures only. (5) Hypertension Is this a current diagnosis for this admission?: Yes Summary: Blood pressures are currently acceptable; 139/95. (6) Tachycardia Is this a current diagnosis for this admission?: Yes Summary: Unclear etiology; EKG demonstrates sinus tachycardia with PVCs. Laboratory evaluation yesterday was benign. Patient's has elected for hospice/comfort care measures; did not pursue additional work up. - Additional Information Resuscitation Status: Do Not Resuscitate Prescriptions: Lorazepam [Ativan Inj 2 mg/1 ml Vial] 1 mg IV Q4HP PRN #4 vial PRN Reason: Morphine Sulfate [Morphine 10 mg/ml Inj] 1 mg IV Q4HP PRN #4 vial PRN Reason: Home Medications: Buspirone HCl [Buspar 10 mg Tablet] 10 mg PO Q12 MDD FILLED 03/12 FOR 30 DAY SUPPLY 06/30/18 Divalproex Sodium [Depakote] 250 mg PO Q12 MDD FILLED 03/12 FOR 30 DAY SUPPLY 06/30/18 Acetaminophen [Tylenol 325 mg Tablet] 650 mg PO Q8HP PRN tablet 07/02/18 Atropine Sulfate [Atropine 1% Oph Soln 5 ml] 1 drop SL Q6HP PRN bottle 07/02/18 Lorazepam [Ativan Inj 2 mg/1 ml Vial] 1 mg IV Q4HP PRN #4 vial 07/02/18 Morphine Sulfate [Morphine 10 mg/ml Inj] 1 mg IV Q4HP PRN #4 vial 07/02/18 History of Present Illness Admission Date/PCP: 06/30/18 05:50 JEANNIE CHRISTIANSON History of Present Illness: Per H&P by Dr. Gordillo: CRISTELA OCAMPO is a 83 year old male with a past medical history of diabetes, hypertension, advanced dementia requiring 100% assistance with ADLs and bedbound state over the last 18 months. Patient presented 48 hours ago with nausea and vomiting found to have a nonobstructive constipation was discharged home only to return with slurred speech and diarrhea. Head CT reveals acute right MCA a CVA. He started on aspirin and referred to the hospitalist for admission. Patient's at bedside verifies a rapid decline over the last 18 months and a DNR CODE STATUS. She does not wish aggressive measures of NG tube or central line placement. Physical Exam Vital Signs: Temp Pulse Resp BP Pulse Ox 99.1 F 98 22 H 139/97 H 98 07/02/18 08:06 07/02/18 08:06 07/02/18 08:06 07/02/18 08:06 07/02/18 08:06 Intake & Output 07/01/18 07/02/18 07/03/18 06:59 06:59 06:59 Intake Total 1000 1000 Output Total 0 Balance 1000 1000 Weight 116.9 kg 115.8 kg General appearance: PRESENT: no acute distress, obese, well-developed, well- nourished Head exam: PRESENT: atraumatic, normocephalic Eye exam: PRESENT: conjunctiva pink, EOMI, PERRLA. ABSENT: scleral icterus Ear exam: PRESENT: normal external ear exam Mouth exam: PRESENT: moist, tongue midline, other - pooling oral secretions Teeth exam: PRESENT: poor dentation Neck exam: ABSENT: carotid bruit, JVD, lymphadenopathy, thyromegaly Respiratory exam: PRESENT: clear to auscultation khari, rhonchi, symmetrical, unlabored. ABSENT: rales, wheezes Cardiovascular exam: PRESENT: irregular rhythm, tachycardia. ABSENT: diastolic murmur, rubs, systolic murmur Pulses: PRESENT: normal dorsalis pedis pul Vascular exam: PRESENT: normal capillary refill GI/Abdominal exam: PRESENT: normal bowel sounds, soft. ABSENT: distended, guarding, mass, organolmegaly, rebound, tenderness Rectal exam: PRESENT: deferred Extremities exam: ABSENT: calf tenderness, clubbing, pedal edema Neurological exam: PRESENT: other - Somnolent; minimally responsive to verbal and tactile stimuli, sluggish withdrawal to pain. ABSENT: motor sensory deficit Skin exam: PRESENT: dry, intact, warm. ABSENT: cyanosis, rash Results Laboratory Results: 07/02/18 10:53 07/02/18 10:53 07/02/18 07/02/18 10:53 10:53 WBC 10.5 RBC 5.15 Hgb 14.5 Hct 44.5 MCV 86 MCH 28.2 MCHC 32.6 RDW 14.0 Plt Count 239 Seg Neutrophils % 84.6 H Lymphocytes % 6.9 L Monocytes % 7.2 Eosinophils % 0.7 Basophils % 0.6 Absolute Neutrophils 8.9 H Absolute Lymphocytes 0.7 Absolute Monocytes 0.8 Absolute Eosinophils 0.1 Absolute Basophils 0.1 Sodium 143.3 Potassium 3.9 Chloride 104 Carbon Dioxide 29 Anion Gap 10 BUN 20 Creatinine 0.71 Est GFR ( Amer) > 60 Est GFR (Non-Af Amer) > 60 Glucose 154 H Calcium 9.0 Phosphorus 3.5 Magnesium 2.0 06/30/18 03:55 Catheterized Urine Urine Culture - Final Proteus Mirabilis Impressions: Chest X-Ray 06/30/18 01:24 IMPRESSION: No acute cardiopulmonary abnormality copyright 2011 [employer]- All Rights Reserved Head CT 06/30/18 05:08 IMPRESSION: Subacute right parietal ischemia. Cannot exclude underlying infectious or neoplastic processes. MRI/contrast CT surveillance recommended. Abdomen X-Ray 06/30/18 05:42 IMPRESSION: Sclerotic lesions of the pelvis may indicate metastatic disease of indeterminate age. Consider comparison with older exams, whole body bone scan, and/or CT-PET as clinically warranted. Transfer Plan - Disposition Transfer Plan: Transfer to [facility]. - Time Spent with Patient Time spent with patient: Greater than 30 Minutes Qualifiers - * PATIENT BEING DISCHARGED WITH ANY OF THE FOLLOWING DIAGNOSIS: Stroke Stroke Pt being discharged on Anti-thrombolytic therapy?: No Reason(s) for not prescribing Anti-thrombolytic therapy:: Comfort Measure Stroke Pt being discharged on Anti-coagulation therapy?: No Reason(s) for not prescribing Anti-coagulation therapy:: Comfort Measure Stroke Pt being discharged on Statins?: No Reason(s) for not prescribing Statins therapy:: Comfort Measure Plan Time Spent: Greater than 30 Minutes
[2018-07-02] MEDS: MORPHINE SULFATE 10 MG/ML INJ IV PRN ×3 (14:19→18:25)
[2018-07-02] MEDS: LORAZEPAM INJ 2 MG/1 ML VIAL IV PRN ×2 (15:04→18:26)
[2018-07-02] MEDS: ASPIRIN 300 MG SUPP, RECTAL PR SCH (15:11)
[2018-07-02] MEDS ORDERED: GLYCOPYRROLATE INJ 0.4 MG/2 ML VIAL IV PRN (16:25)
[2018-07-02 20:03] VITALS: BP 36/25
--- NOTE | 2018-07-02 22:36 | EKG REPORT ---
SEVERITY:- ABNORMAL ECG - SINUS TACHYCARDIA MULTIFORM VENTRICULAR PREMATURE COMPLEXES LEFT ANTERIOR FASCICULAR BLOCK : Confirmed by: Esther Guzman MD 02-Jul-2018 22:35:35
== END 2018-07-02 22:25 | disposition left against medical advice (07) | DRG 66 ==
LOC: ER 01:02 → EH 05:50 → 3S 15:13 → OBSVTOIN 07-02 10:06
PROVIDERS: ADMIT Internal Medicine; ATTEND Internal Medicine
DX: I63.411 Cerebral infarction due to embolism of right middle cerebral artery (principal); R47.81 Slurred speech; I10 Essential (primary) hypertension; E11.9 Type 2 diabetes mellitus without complications; Z51.5 Encounter for palliative care; F03.90 Unspecified dementia, unspecified severity, without behavioral disturbance, psychotic disturbance, mood disturbance, and anxiety; Z66 Do not resuscitate; I11.0 Hypertensive heart disease with heart failure; I50.9 Heart failure, unspecified; R62.7 Adult failure to thrive; R00.0 Tachycardia, unspecified; I25.10 Atherosclerotic heart disease of native coronary artery without angina pectoris; F41.9 Anxiety disorder, unspecified; K21.9 Gastro-esophageal reflux disease without esophagitis; M19.90 Unspecified osteoarthritis, unspecified site; Z79.84 Long term (current) use of oral hypoglycemic drugs; Z82.3 Family history of stroke; Z82.49 Family history of ischemic heart disease and other diseases of the circulatory system; Z74.01 Bed confinement status
CPT/HCPCS: 36415; 51701; 70450; 71045; 74019; 80048; 80053; 81001; 82803; 82962; 83605; 83735; 84100; 85025; 85610; 87040; 87045; 87077; 87086; 87088; 87186; 87205; 87493; 93005; 93010; 96360; 99285; C1758; J1644; J2060; J2270; J3490; J7030